=== PATIENT | male | born 1950 | race African-American/Black ===

== ENCOUNTER 2018-02-15 00:53 | Inpatient (IN) | payer MEDICARE, OTHER ==
[2018-02-15] VITALS (15 sets, daily range): BP systolic 126–188; BP diastolic 72–113; PULSE 69–98; RESP 16–20; TEMP 98.1–99.3; O2SAT 94–99
[~2018-02-15] VITALS: Ht 177.8 cm; Wt 93.0 kg
[2018-02-15] MEDS ORDERED: LABETALOL HCL 100 MG/20 ML VIAL IV PUSH STA (01:02)
[2018-02-15] MEDS ORDERED: SODIUM CHLORIDE 0.9% FLUSH 10 ML FLUSH IVF PRN (01:15)
[2018-02-15] MEDS ORDERED: MORPHINE SULFATE 4 MG/ML INJ IV PUSH ONE (01:15)
[2018-02-15 01:22] LABS: AUTOMATED NEUTROPHIL # 5.8 TH/MM3 (1.8-7.7); BASOPHIL % 0.2 % (0.0-2.0); HEMATOCRIT 39.3 % (39.0-51.0); HEMOGLOBIN 12.9 GM/DL (13.0-17.0); LYMPHOCYTE # 0.7 TH/MM3 (1.0-4.8); MEAN CELL VOLUME 90.6 FL (80.0-100.0); MEAN CORPUSCULAR HEMOGLOBIN 29.9 PG (27.0-34.0); MEAN PLATELET VOLUME 11.2 FL (7.0-11.0); MONO % 2.3 % (0.0-8.0); MONOCYTE # 0.2 TH/MM3 (0-0.9); NEUT % 86.5 % (16.0-70.0); PLATELET COUNT 188 TH/MM3 (150-450); RED BLOOD COUNT 4.33 MIL/MM3 (4.50-5.90); RED CELL DISTRIBUTION WIDTH 13.5 % (11.6-17.2); WHITE BLOOD COUNT 6.7 TH/MM3 (4.0-11.0)
--- NOTE | 2018-02-15 01:47 | RADRPT ---
EXAM DATE: 02/15/2018 1:31 AM EDT AGE/SEX: 67 years / Male INDICATIONS: Left upper chest pain. CLINICAL DATA: This is the patient's initial encounter. Patient reports that signs and symptoms have been present for 1 day and indicates a pain score of 7/10. MEDICAL/SURGICAL HISTORY: None. None. COMPARISON: No prior [place] exams available for comparison. FINDINGS: A single AP view of the chest demonstrates the lungs to be symmetrically aerated without evidence of mass, infiltrate or effusion. The cardiomediastinal contours are unremarkable. Osseous structures a re intact. CONCLUSION: No evidence of acute cardiopulmonary disease. Electronically signed by: Reagan Alba MD 02/15/2018 1:46 AM EDT
[2018-02-15 02:01] LABS: ALT (GPT) 28 U/L (12-78); AST (GOT) 19 U/L (15-37); BICARBONATE 23.8 MEQ/L (21.0-32.0); BLOOD UREA NITROGEN 14 MG/DL (7-18); CALCIUM 9.4 MG/DL (8.5-10.1); CHLORIDE 102 MEQ/L (98-107); CREATININE 1.21 MG/DL (0.60-1.30); GLOMERULAR FILTRATION RATE 73 ML/MIN (>89); GLUCOSE,RANDOM 325 MG/DL (74-106); MAGNESIUM 1.7 MG/DL (1.5-2.5); SODIUM (NA) 139 MEQ/L (136-145)
[2018-02-15 02:04] LABS: ALKALINE PHOSPHATASE 120 U/L (45-117); TOTAL BILIRUBIN ADULT 0.4 MG/DL (0.2-1.0); TOTAL PROTEIN 7.5 GM/DL (6.4-8.2); TROPONIN I 0.12 NG/ML (0.02-0.05)
[2018-02-15] MEDS ORDERED: LABETALOL HCL 100 MG/20 ML VIAL IV PUSH ONE (02:45)
[2018-02-15] MEDS ORDERED: HEPARIN SODIUM - IV 10,000 UNITS/10 ML VIAL IV ONE (02:45)
[2018-02-15] MEDS ORDERED: NITROGLYCERIN 2% OINT 1 GM PACKET TOPICAL ONE (02:45)
[2018-02-15] MEDS ORDERED: BISACODYL 10 MG SUPP RECTAL PRN (03:00)
[2018-02-15] MEDS ORDERED: MAGNESIUM HYDROXIDE SUSP 30 ML CUP PO PRN (03:00)
[2018-02-15] MEDS ORDERED: MORPHINE SULFATE 4 MG/ML INJ IV PUSH PRN (03:00)
[2018-02-15] MEDS ORDERED: NITROGLYCERIN 2% OINT 1 GM PACKET TOPICAL PRN (03:00)
[2018-02-15] MEDS ORDERED: LACTULOSE SYRUP 20 GM/30 ML CUP PO PRN (03:00)
[2018-02-15] MEDS ORDERED: ACETAMINOPHEN/HYDROcodone 325 MG/5 MG TAB PO PRN (03:00)
[2018-02-15] MEDS ORDERED: SENNOSIDES 8.6 MG TAB PO PRN (03:00)
[2018-02-15] MEDS ORDERED: SODIUM CHLORIDE 0.9% FLUSH 10 ML FLUSH IV FLUSH PRN (03:00)
[2018-02-15] MEDS ORDERED: METOCLOPRAMIDE HCL 10 MG/2 ML VIAL IV PUSH PRN (03:00)
[2018-02-15] MEDS: SODIUM CHLOR 0.9% 1000 ML INJ 1,000 ML IV SCH ×3 (03:04→22:46)
[2018-02-15] MEDS: HEPARIN-D5W 25,000 U/250 ML 250 ML IV PRN (03:05)
--- NOTE | 2018-02-15 03:25 | PD ---
HPI . Chest pain Chief Complaint: Chest Pain Time Seen by Provider: 01:02 Travel History International Travel<30 days: No Contact w/Intl Traveler<30days: No Traveled to known affect area: No History of Present Illness HPI [place] to his car when he felt substernal chest pain pressure-like to continue constantly called 911 took his own sublingual nitro they arrived to find him to be very hypertensive and they gave him 4 more sublingual to trying to reduce his pain and reduce his blood pressure also they gave him 4 baby aspirin then in route this pain subsided the patient arrives with no chest pain he has a history of insulin-dependent diabetic hypertensive he has a history of having stents placed he is supposed to have another stent placed in the [place] [facility] on February 27. He had a stent and a cath done not too long ago as well has a history of CAD hypertension diabetes now he is pain-free but the pain was pressure-like substernal continued up until sublingual nitros were given in the ambulance EKG is bigeminy at a rate of 94 bpm [facility] Past Medical History Cardiac Catheterization: Yes High Cholesterol: Yes Chest Pain: Yes Diabetes: Yes Patient Takes Glucophage: No Hypertension: Yes Past Surgical History Coronary Stent: Yes Social History Alcohol Use: No Tobacco Use: No Substance Use: No Allergies-Medications (Allergen,Severity, Reaction): Coded Allergies: No Known Allergies (Unverified , 02/15/18) Review of Systems Except as stated in HPI: all other systems reviewed are Neg Physical Exam Narrative GENERAL: Awake alert mildly diaphoretic forehead but otherwise looks healthy SKIN: Warm and dry. HEAD: Atraumatic. Normocephalic. EYES: Pupils equal and round. No scleral icterus. No injection or drainage. ENT: No nasal bleeding or discharge. Mucous membranes pink and moist. NECK: Trachea midline. No JVD. CARDIOVASCULAR: Patient on the monitor has bigeminy every other beat is a PVC at a rate of 94 EKG bigeminy heart rate 94 RESPIRATORY: No accessory muscle use. Clear to auscultation. Breath sounds equal bilaterally. GASTROINTESTINAL: Abdomen soft, non-tender, nondistended. Hepatic and splenic margins not palpable. MUSCULOSKELETAL: Extremities without clubbing, cyanosis, or edema. No obvious deformities. NEUROLOGICAL: Awake and alert. No obvious cranial nerve deficits. Motor grossly within normal limits. Five out of 5 muscle strength in the arms and legs. Normal speech. PSYCHIATRIC: Appropriate mood and affect; insight and judgment normal. Data Data Last Documented VS Vital Signs Date Time Temp Pulse Resp B/P (MAP) Pulse Ox O2 Delivery O2 Flow Rate FiO2 02/15/18 01:27 173/113 (133) 02/15/18 01:07 98 Room Air 02/15/18 00:56 98.2 98 18 Orders Orders Labetalol Inj (Trandate Inj) (02/15/18 01:02) Electrocardiogram (02/15/18 01:05) Ckmb (Isoenzyme) Profile (02/15/18 01:05) Complete Blood Count With Diff (02/15/18 01:05) Comprehensive Metabolic Panel (02/15/18 01:05) Magnesium (Mg) (02/15/18 01:05) Prothrombin Time / Inr (Pt) (02/15/18 01:05) Act Partial Throm Time (Ptt) (02/15/18 01:05) Troponin I (02/15/18 01:05) Chest, Single Ap (02/15/18 01:05) Ecg Monitoring (02/15/18 01:05) Bilateral Bp Monitoring (02/15/18 01:05) Iv Access Insert/Monitor (02/15/18 01:05) Oximetry (02/15/18 01:05) Oxygen Administration (02/15/18 01:05) Morphine Inj (Morphine Inj) (02/15/18 01:15) Sodium Chloride 0.9% Flush (Ns Flush) (02/15/18 01:15) CKMB (02/15/18 01:09) CKMB% (02/15/18 01:09) Heparin Inj (Heparin Inj) (02/15/18 02:45) Heparin-D5w 25,000 U/250 Ml (Heparin-D5w (02/15/18 02:45) Act Partial Throm Time (Ptt) (02/15/18 02:39) Prothrombin Time / Inr (Pt) (02/15/18 02:39) Cbc No Diff, Includes Plts (02/15/18 02:39) Cbc No Diff, Includes Plts (02/18/18 06:00) Act Partial Throm Time (Ptt) (02/15/18 09:39) Occult Blood (Hemoccult) Stool (02/15/18 02:39) Nitroglycerin 2% Oint (Nitroglycerin 2% (02/15/18 02:45) Labetalol Inj (Trandate Inj) (02/15/18 02:45) Admit To Inpatient (02/15/18 ) Vital Signs (Adult) Q4H (02/15/18 02:46) Activity Oob With Assistance (02/15/18 02:46) Slab Lifting Engineer / Telemetry .CONTINUOUS (02/15/18 02:46) Intake + Output JASMIN.QSHIFT (02/15/18 02:46) Diet Heart Healthy (02/15/18 Breakfast) Sodium Chlor 0.9% 1000 Ml Inj (Ns 1000 M (02/15/18 02:46) Sodium Chloride 0.9% Flush (Ns Flush) (02/15/18 03:00) Sodium Chloride 0.9% Flush (Ns Flush) (02/15/18 09:00) Metoclopramide Inj (Reglan Inj) (02/15/18 03:00) Comprehensive Metabolic Panel (02/16/18 06:00) Complete Blood Count With Diff (02/16/18 06:00) Troponin I (02/15/18 09:00) Troponin I (02/15/18 15:00) Case Management Consult (02/15/18 02:46) Acetaminophen (Tylenol) (02/15/18 03:00) Acetamin-Hydrocod 325-5 Mg ([place] 5-325 (02/15/18 03:00) Docusate Sodium-Senna (Nancy-Colace) (02/15/18 09:00) Magnesium Hydroxide Liq (Milk Of Magnesi (02/15/18 03:00) Sennosides (Senokot) (02/15/18 03:00) Bisacodyl Supp (Dulcolax Supp) (02/15/18 03:00) Lactulose Liq (Lactulose Liq) (02/15/18 03:00) Inpatient Certification (02/15/18 ) Consult Cardiology (02/15/18 ) Aspirin Ec (Ecotrin Ec) (02/15/18 09:00) Atorvastatin (Lipitor) (02/15/18 09:00) Lipid Profile (02/15/18 09:00) Hemoglobin (Hgb) A1c (02/15/18 09:00) Nitroglycerin 2% Oint (Nitroglycerin 2% (02/15/18 03:00) Metoprolol Tartrate (Lopressor) (02/15/18 09:00) Morphine Inj (Morphine Inj) (02/15/18 03:00) Admit Order (Ed Use Only) (02/15/18 03:12) Labs Laboratory Tests Test 02/15/18 01:09 White Blood Count 6.7 TH/MM3 Red Blood Count 4.33 MIL/MM3 Hemoglobin 12.9 GM/DL Hematocrit 39.3 % Mean Corpuscular Volume 90.6 FL Mean Corpuscular Hemoglobin 29.9 PG Mean Corpuscular Hemoglobin Concent 33.0 % Red Cell Distribution Width 13.5 % Platelet Count 188 TH/MM3 Mean Platelet Volume 11.2 FL Neutrophils (%) (Auto) 86.5 % Lymphocytes (%) (Auto) 11.0 % Monocytes (%) (Auto) 2.3 % Eosinophils (%) (Auto) 0.0 % Basophils (%) (Auto) 0.2 % Neutrophils # (Auto) 5.8 TH/MM3 Lymphocytes # (Auto) 0.7 TH/MM3 Monocytes # (Auto) 0.2 TH/MM3 Eosinophils # (Auto) 0.0 TH/MM3 Basophils # (Auto) 0.0 TH/MM3 CBC Comment DIFF FINAL Differential Comment Prothrombin Time 10.0 SEC Prothromb Time International Ratio 1.0 RATIO Activated Partial Thromboplast Time 26.2 SEC Blood Urea Nitrogen 14 MG/DL Creatinine 1.21 MG/DL Random Glucose 325 MG/DL Total Protein 7.5 GM/DL Albumin 4.0 GM/DL Calcium Level 9.4 MG/DL Magnesium Level 1.7 MG/DL Alkaline Phosphatase 120 U/L Aspartate Amino Transf (AST/SGOT) 19 U/L Alanine Aminotransferase (ALT/SGPT) 28 U/L Total Bilirubin 0.4 MG/DL Sodium Level 139 MEQ/L Potassium Level 4.0 MEQ/L Chloride Level 102 MEQ/L Carbon Dioxide Level 23.8 MEQ/L Anion Gap 13 MEQ/L Estimat Glomerular Filtration Rate 73 ML/MIN Total Creatine Kinase 479 U/L Creatine Kinase MB 11.8 NG/ML Creatine Kinase MB % 2.5 % Troponin I 0.12 NG/ML MDM Medical Decision Making Medical Screen Exam Complete: Yes Emergency Medical Condition: Yes Medical Record Reviewed: Yes Interpretation(s) EKG is bigeminy at a rate of 94 bpm every normal QRS narrow is followed by a large PVC on a repeating pattern 1-1 Differential Diagnosis Patient has chest pain substernal possibly due to pneumonia possibly due to ischemic cardiac disease possibly due to arrhythmia Narrative Course trop =0 0.12 EKG is bigeminy at a rate of 94 bpm with a 1-1 bigeminy patient is given aspirin nitro admitted to [facility] Critical Care Narrative 30 minutes of cardiac CC time Diagnosis Primary Impression: Non-STEMI (non-ST elevated myocardial infarction) Additional Impression: Bigeminy Admitting Information Admitting Physician Requests: Sherwin Herrera MD February 15, 2018 03:25
[2018-02-15] MEDS ORDERED: GLUCAGON 1 MG/ML VIAL OTHER PRN (04:15)
[2018-02-15] MEDS ORDERED: DEXTROSE 50% IN WATER 50 ML VIAL(D50) IV PUSH PRN (04:15)
--- NOTE | 2018-02-15 04:26 | HHI.HP ---
[facility]ician Unknown Admission Diagnosis NON STEMI Diagnoses: (1) NSTEMI (non-ST elevated myocardial infarction) Diagnosis: Principal (2) HTN (hypertension) Diagnosis: Principal (3) DM (diabetes mellitus) Diagnosis: Principal Travel History International Travel<30 Days: No Contact w/Intl Traveler <30 Da: No Traveled to Known Affected Are: No History of Present Illness This is a 67-year-old male with a PMH of HTN, Hyperlipidemia and DM was brought to the ER by EMS secondary to complaints of chest pain. Pt states he's had intermittent chest pain for several weeks. Follows w/ Treasury Assistant in [place] and had recent Cath w/ plans for stent placement on February 27. [place] and had chest pain when he got out of the car. Pain became constant, severe, 10/10, substernal, non-radiating. Took 6 NTG total with no improvement. Given ASA by EMS. Denies SOB. On arrival, BP 188/86, HR 98, O2 sat 98% on RA, Afebrile. CBC unremarkable. Chemistry unremarkable except for BS 325. Troponin 0.12. INR 1.0. CXR with no acute findings. S/p NTG in addition to Morphine, currently pain improved. Review of Systems Except as stated in HPI: all other systems reviewed are Neg ROS: 14 point review of systems otherwise negative. Past Family Social History Past Medical History PMH: HTN, Hyperlipidemia and DM Past Surgical History PAST SURGICAL HISTORY: Cardiac Stent Allergies: Coded Allergies: No Known Allergies (Unverified , 02/15/18) Family History PAST FAMILY HISTORY: Reviewed. No h/o DM or CAD Social History PAST SOCIAL HISTORY: Negative for alcohol, tobacco or drugs. Physical Exam Vital Signs Vital Signs Date Time Temp Pulse Resp B/P (MAP) Pulse Ox O2 Delivery O2 Flow Rate FiO2 02/15/18 03:36 02/15/18 03:29 89 18 159/77 (104) 97 Room Air 02/15/18 01:27 173/113 (133) 02/15/18 01:07 98 Room Air 02/15/18 01:07 98 Room Air 02/15/18 01:07 188/86 (120) 02/15/18 00:56 98.2 98 18 188/86 (120) 98 Physical Exam PE: GENERAL: Very pleasant middle-aged black male in no acute distress. HEENT: PERRLA, EOMI. No scleral icterus or conjunctival pallor. No lid lag or facial droop. CARDIOVASCULAR: Regular rate and rhythm. No obvious murmurs to auscultation. No chest tenderness to palpation. RESPIRATORY: No obvious rhonchi or wheezing. Clear to auscultation. Breath sounds equal bilaterally. GASTROINTESTINAL: Abdomen soft, non-tender, nondistended. BS normal. MUSCULOSKELETAL: Extremities without clubbing, cyanosis, or edema. No obvious deformities. NEUROLOGICAL: Awake, alert and oriented x4. No focal neurologic deficits. Moving both upper and lower extremities spontaneously. Laboratory Laboratory Tests Test 02/15/18 01:09 White Blood Count 6.7 Red Blood Count 4.33 Hemoglobin 12.9 Hematocrit 39.3 Mean Corpuscular Volume 90.6 Mean Corpuscular Hemoglobin 29.9 Mean Corpuscular Hemoglobin Concent 33.0 Red Cell Distribution Width 13.5 Platelet Count 188 Mean Platelet Volume 11.2 Neutrophils (%) (Auto) 86.5 Lymphocytes (%) (Auto) 11.0 Monocytes (%) (Auto) 2.3 Eosinophils (%) (Auto) 0.0 Basophils (%) (Auto) 0.2 Neutrophils # (Auto) 5.8 Lymphocytes # (Auto) 0.7 Monocytes # (Auto) 0.2 Eosinophils # (Auto) 0.0 Basophils # (Auto) 0.0 CBC Comment DIFF FINAL Differential Comment Prothrombin Time 10.0 Prothromb Time International Ratio 1.0 Activated Partial Thromboplast Time 26.2 Blood Urea Nitrogen 14 Creatinine 1.21 Random Glucose 325 Total Protein 7.5 Albumin 4.0 Calcium Level 9.4 Magnesium Level 1.7 Alkaline Phosphatase 120 Aspartate Amino Transf (AST/SGOT) 19 Alanine Aminotransferase (ALT/SGPT) 28 Total Bilirubin 0.4 Sodium Level 139 Potassium Level 4.0 Chloride Level 102 Carbon Dioxide Level 23.8 Anion Gap 13 Estimat Glomerular Filtration Rate 73 Total Creatine Kinase 479 Creatine Kinase MB 11.8 Creatine Kinase MB % 2.5 Troponin I 0.12 Result Diagram: 5/2610802/15/18108 Caprini VTE Risk Assessment Caprini VTE Risk Assessment: No/Low Risk (score <= 1) Caprini Risk Assessment Model Point Value = 1 Point Value = 2 Point Value = 3 Point Value = 5 Age 41-60 Minor surgery BMI > 25 kg/m2 Swollen legs Varicose veins or History of unexplained or recurrent spontaneous Oral contraceptives or hormone replacement Sepsis (< 1 month) Serious lung disease, including pneumonia (< 1 month) Abnormal pulmonary function Acute myocardial infarction Congestive heart failure (< 1 month) History of inflammatory bowel disease Medical patient at bed rest Age 61-74 Arthroscopic surgery Major open surgery (> 45 min) Laparoscopic surgery (> 45 min) Malignancy Confined to bed (> 72 hours) Immobilizing plaster cast Central venous access Age >= 75 History of VTE Family history of VTE Factor V Leiden Prothrombin [id number] Lupus anticoagulant Anticardiolipin antibodies Elevated serum homocysteine Heparin-induced thrombocytopenia Other congenital or acquired thrombophilia Stroke (< 1 month) Elective arthroplasty Hip, pelvis, or leg fracture Acute spinal cord injury (< 1 month) Prophylaxis Regimen Total Risk Factor Score Risk Level Prophylaxis Regimen 0-1 Low Early ambulation 2 Moderate Order ONE of the following: *Sequential Compression Device (SCD) *Heparin 5000 units SQ BID 3-4 Higher Order ONE of the following medications: *Heparin 5000 units SQ TID *Enoxaparin/Lovenox 40 mg SQ daily (WT < 150 kg, CrCl > 30 mL/min) *Enoxaparin/Lovenox 30 mg SQ daily (WT < 150 kg, CrCl > 10-29 mL/min) *Enoxaparin/Lovenox 30 mg SQ BID (WT < 150 kg, CrCl > 30 mL/min) AND/OR *Sequential Compression Device (SCD) 5 or more Highest Order ONE of the following medications: *Heparin 5000 units SQ TID (Preferred with Epidurals) *Enoxaparin/Lovenox 40 mg SQ daily (WT < 150 kg, CrCl > 30 mL/min) *Enoxaparin/Lovenox 30 mg SQ daily (WT < 150 kg, CrCl > 10-29 mL/min) *Enoxaparin/Lovenox 30 mg SQ BID (WT < 150 kg, CrCl > 30 mL/min) AND *Sequential Compression Device (SCD) Assessment and Plan Problem List: (1) NSTEMI (non-ST elevated myocardial infarction) ICD Code: I21.4 - Non-ST elevation (NSTEMI) myocardial infarction (2) HTN (hypertension) ICD Code: I10 - Essential (primary) hypertension (3) DM (diabetes mellitus) ICD Code: E11.9 - Type 2 diabetes mellitus without complications Assessment and Plan A/P: 1. NSTEMI: c/o chest pain, h/o Cath w/ stent placement, Trop 0.12, s/p NTG x6 prior to arrival and Morphine in ER w/ some improvement. Heparin gtt, check serial cardiac enzymes, NTG/Morphine as needed. ASA, Statin, Metoprolol. Check Lipid Profile, Hgb A1c. Cardiology Consult for further evaluation/ intervention. 2. HTN: Uncontrolled. BP 180's on arrival, likely compounded by chest pain, s /p Labetalol w/ improvement, start Metoprolol, monitor BP. 3. DM: Sliding scale w/ Accu-Cheks. Check Hgb A1c. 4. DVT Prophylaxis: Heparin gtt 5. Social work for d/c planning as needed. 6. Case discussed w/ ER physician at length, labs/records/imaging reviewed by me. Physician Certification 2 Midnight Certification Type: Admission for Inpatient Services Order for Inpatient Services The services are ordered in accordance with Medicare regulations or non- Medicare payer requirements, as applicable. In the case of services not specified as inpatient-only, they are appropriately provided as inpatient services in accordance with the 2-midnight benchmark. Estimated LOS (days): 2 days is the estimated time the patient will need to remain in the hospital, assuming treatment plan goals are met and no additional complications. Post-Hospital Plan: Not yet determined Radha Good MD February 15, 2018 04:26
[2018-02-15] MEDS: INSULIN ASPART SUPPLEMENTAL SCALE SQ SCH ×4 (08:00→21:20)
--- NOTE | 2018-02-15 08:02 | PD.CONS ---
HPI Service cardiology Consult Requested By Reason for Consult NSTEMI Primary Care Physician Unknown History of Present Illness This is a pleasant 67 yo AAM with CAD and multiple prior stenting followed by finance executive in [place], with HTN, HLD and diabetes who presents with exertional chest pain. He reports having had a cardiac catheterization in November of this year initially via groin access but apparently procedure could not be completed due to intractable back pain and the procedure was rescheduled for the first week of February to be done by radial approach. Last week he held Plavix x 1 week for low back injection; his low back felt so much better after injection that he's been more physically active. He drove down to the [employer] and upon walking from car to front door he developed anterior chest pain reminiscent of prior RI. He then came to [facility] ED for evaluation. Troponin level x 1 is elevated 0.12; CK elevated(479). EKG shows ventricular bigeminy. Denies current chest pain, sob or palpitations. Review of Systems Consitutional: DENIES: Fatigue, Fever, Chills, Weight gain, Weight loss Respiratory: DENIES: Cough, Snoring, Shortness of breath, Wheezing, Sputum production Cardiovascular: DENIES: Palpitations, Syncope, Tachycardia Gastrointestinal: DENIES: Nausea, Vomiting, Change in bowel habits, Reflux, Bloody stools, Melena Past Family Social History Allergies: Coded Allergies: No Known Allergies (Unverified , 02/15/18) Past Medical History HTN, Hyperlipidemia and DM Past Surgical History Cardiac Stent Active Ordered Medications Current Medications Medications (Trade) Dose Ordered Sig/Chuck Route Start Time Stop Time Status Last Admin (NS Flush) 2 ml UNSCH PRN IVF 02/15/18 01:15 Heparin Sodium/ Dextrose 250 ml @ 10 mls/hr TITRATE PRN IV 02/15/18 02:45 02/15/18 03:05 Sodium Chloride 1,000 ml @ 100 mls/hr Q10H IV 02/15/18 02:46 02/15/18 03:04 (NS Flush) 2 ml UNSCH PRN IV FLUSH 02/15/18 03:00 (NS Flush) 2 ml BID IV FLUSH 02/15/18 09:00 (Reglan Inj) 5 mg Q6H PRN IV PUSH 02/15/18 03:00 (Tylenol) 650 mg Q6H PRN PO 02/15/18 03:00 ([place] 5-325 Mg) 1 tab Q4H PRN PO 02/15/18 03:00 (Morphine Inj) 2 mg Q3H PRN IV PUSH 02/15/18 03:00 (Nancy-Colace) 1 tab BID PO 02/15/18 09:00 (Milk Of Magnesia Liq) 30 ml Q12H PRN PO 02/15/18 03:00 (Senokot) 17.2 mg Q12H PRN PO 02/15/18 03:00 (Dulcolax Supp) 10 mg DAILY PRN RECTAL 02/15/18 03:00 (Lactulose Liq) 30 ml DAILY PRN PO 02/15/18 03:00 (Ecotrin Ec) 81 mg DAILY PO 02/15/18 09:00 (Lipitor) 40 mg DAILY PO 02/15/18 09:00 (Nitroglycerin 2% Oint) 0.5 inch Q6HR PRN TOPICAL 02/15/18 03:00 (Lopressor) 25 mg Q12HR PO 02/15/18 09:00 (D50w (Vial) Inj) 50 ml UNSCH PRN IV PUSH 02/15/18 04:15 (Glucagon Inj) 1 mg UNSCH PRN OTHER 02/15/18 04:15 (NovoLOG SUPPLEMENTAL SCALE) 1 ACHS SLIDING SCALE SQ 02/15/18 08:00 (Pneumovax-23 Inj) 25 mcg ONCE ONCE IM 02/16/18 10:00 02/16/18 10:01 (Flu (Quadrivalent) Vaccine Inj) 0.5 ml ONCE ONCE IM 02/16/18 10:00 02/16/18 10:01 Family History . No h/o DM or CAD Social History Negative for alcohol, tobacco or drugs. Physical Exam Vital Signs Vital Signs Date Time Temp Pulse Resp B/P (MAP) Pulse Ox O2 Delivery O2 Flow Rate FiO2 02/15/18 03:36 02/15/18 03:29 89 18 159/77 (104) 97 Room Air 02/15/18 01:27 173/113 (133) 02/15/18 01:07 98 Room Air 02/15/18 01:07 98 Room Air 02/15/18 01:07 188/86 (120) 02/15/18 00:56 98.2 98 18 188/86 (120 98 Physical Exam GENERAL: SKIN: Warm and dry. HEAD: Atraumatic. Normocephalic. EYES: Pupils equal and round. No scleral icterus. ENT: No nasal bleeding or discharge. . NECK: Trachea midline. No JVD. CARDIOVASCULAR: Regular rate and regularly irregular rhythm. RESPIRATORY: No accessory muscle use. Clear to auscultation. Breath sounds equal bilaterally. GASTROINTESTINAL: Abdomen soft, non-tender, nondistended. Hepatic and splenic margins not palpable. MUSCULOSKELETAL: Extremities without clubbing, cyanosis, or edema. No obvious deformities. NEUROLOGICAL: Awake and alert. No obvious cranial nerve deficits.. Normal speech. PSYCHIATRIC: Appropriate mood and affect; insight and judgment normal. Laboratory Laboratory Tests Test 02/15/18 01:09 White Blood Count 6.7 Red Blood Count 4.33 Hemoglobin 12.9 Hematocrit 39.3 Mean Corpuscular Volume 90.6 Mean Corpuscular Hemoglobin 29.9 Mean Corpuscular Hemoglobin Concent 33.0 Red Cell Distribution Width 13.5 Platelet Count 188 Mean Platelet Volume 11.2 Neutrophils (%) (Auto) 86.5 Lymphocytes (%) (Auto) 11.0 Monocytes (%) (Auto) 2.3 Eosinophils (%) (Auto) 0.0 Basophils (%) (Auto) 0.2 Neutrophils # (Auto) 5.8 Lymphocytes # (Auto) 0.7 Monocytes # (Auto) 0.2 Eosinophils # (Auto) 0.0 Basophils # (Auto) 0.0 CBC Comment DIFF FINAL Differential Comment Prothrombin Time 10.0 Prothromb Time International Ratio 1.0 Activated Partial Thromboplast Time 26.2 Blood Urea Nitrogen 14 Creatinine 1.21 Random Glucose 325 Total Protein 7.5 Albumin 4.0 Calcium Level 9.4 Magnesium Level 1.7 Alkaline Phosphatase 120 Aspartate Amino Transf (AST/SGOT) 19 Alanine Aminotransferase (ALT/SGPT) 28 Total Bilirubin 0.4 Sodium Level 139 Potassium Level 4.0 Chloride Level 102 Carbon Dioxide Level 23.8 Anion Gap 13 Estimat Glomerular Filtration Rate 73 Total Creatine Kinase 479 Creatine Kinase MB 11.8 Creatine Kinase MB % 2.5 Troponin I 0.12 Result Diagram: 02/15/1810802/15/18108 Imaging Last 48 hours Impressions Chest X-Ray 02/15/18104 Signed Impressions: CONCLUSION: No evidence of acute cardiopulmonary disease. Assessment and Plan Problem List: (1) NSTEMI (non-ST elevated myocardial infarction) ICD Codes: I21.4 - Non-ST elevation (NSTEMI) myocardial infarction Assessment and Plan 67 yo AAM with CAD and multiple prior stenting followed by finance executive in [place], with HTN, HLD and diabetes who presents with exertional chest pain. He reports having had a cardiac catheterization in November of this year initially via groin access but apparently procedure could not be completed due to intractable back pain and the procedure was rescheduled for the first week of February to be done by radial approach. Last week he held Plavix x 1 week for low back injection; his low back felt so much better after injection that he's been more physically active. He drove down to the [employer] and upon walking from car to front door he developed anterior chest pain reminiscent of prior RI. He then came to [facility] for evaluation. Troponin level x 1 is elevated 0.12; CK elevated(479). Denies current chest pain, sob or palpitations. NSTEMI- currently resting comfortably. ventricular bigeminy check echo monitor troponin trend will require ischemic workup; [facility] vs. Jenifer Khan February 15, 2018 08:02
[2018-02-15] MEDS: ASPIRIN EC 81 MG TABEC PO SCH (08:48)
[2018-02-15] MEDS: METOPROLOL TARTRATE 25 MG TAB PO SCH ×2 (08:48→21:17)
[2018-02-15] MEDS: ATORVASTATIN 40 MG TAB PO SCH (08:49)
[2018-02-15] MEDS: SODIUM CHLORIDE 0.9% FLUSH 10 ML FLUSH IV FLUSH SCH ×2 (08:49→21:00)
[2018-02-15] MEDS: DOCUSATE SODIUM 50 MG/SENNA 8.6 MG TAB PO SCH ×2 (08:49→21:00)
[2018-02-15 10:54] LABS: CHOLESTEROL 67 MG/DL (120-200); TRIGLYCERIDES 30 MG/DL (42-150)
[2018-02-15 11:00] LABS: CHOLESTEROL/ HDL RATIO 1.64 RATIO; HDL CHOLESTEROL 40.7 MG/DL (40.0-60.0); LDL CHOLESTEROL 20 MG/DL (0-99)
[2018-02-15 11:12] LABS: TROPONIN I 1.59 NG/ML (0.02-0.05)
--- NOTE | 2018-02-15 11:25 | HHI.PR ---
Subjective Remarks resting comfortably. no chest pain or sob. d/w the RN and no acute issues over night. Objective Vitals Vital Signs Date Time Temp Pulse Resp B/P (MAP) Pulse Ox O2 Delivery O2 Flow Rate FiO2 02/15/18 04:00 99.3 85 20 136/85 (102) 94 02/15/18 04:00 85 02/15/18 03:36 02/15/18 03:29 89 18 159/77 (104) 97 Room Air 02/15/18 01:27 173/113 (133) 02/15/18 01:07 98 Room Air 02/15/18 01:07 98 Room Air 02/15/18 01:07 188/86 (120) 02/15/18 00:56 98.2 98 18 188/86 (120) 98 I/O 02/14/18 02/14/18 02/14/18 02/15/18 02/15/18 02/15/18 07:00 15:00 23:00 07:00 15:00 23:00 Intake Total 325 ml Output Total 300 ml Balance 25 ml Intake IV Total 325 ml Output Urine Total 300 ml Result Diagram: 02/15/1810802/15/18108 Imaging Last Impressions Chest X-Ray 02/15/18104 Signed Impressions: CONCLUSION: No evidence of acute cardiopulmonary disease. Objective Remarks GENERAL: This is a well-nourished, well-developed patient, in no apparent distress. CARDIOVASCULAR: Regular rate and regular rhythm without murmurs, gallops, or rubs. RESPIRATORY: Clear to auscultation. Breath sounds equal bilaterally. No wheezes , rales, or rhonchi. GASTROINTESTINAL: Abdomen soft, non-tender, nondistended. Normal, active bowel sounds MUSCULOSKELETAL: Extremities without clubbing, cyanosis, or edema. NEURO: Alert & Oriented x4 to person, place, time, situation. Moves all ext x4 Medications and IVs Inpatient Medications Acetaminophen (Tylenol) 650 mg Q6H PRN PO FEVER/PAIN SCALE 1 TO 2; Start at 03:00 Acetaminophen/ Hydrocodone Bitart ([place] 5-325 Mg) 1 tab Q4H PRN PO PAIN SCALE 3 TO 5; Start 02/15/18 at 03:00 Aspirin (Ecotrin Ec) 81 mg DAILY PO Last administered on 02/15/18at 08:48; Start 02/15/18 at 09:00 Atorvastatin Calcium (Lipitor) 40 mg DAILY PO Last administered on 02/15/18at 08 :49; Start 02/15/18 at 09:00 Bisacodyl (Dulcolax Supp) 10 mg DAILY PRN RECTAL SEVERE CONSITIPATION/ IF NPO ; Start 02/15/18 at 03:00 Dextrose (D50w (Vial) Inj) 50 ml UNSCH PRN IV PUSH HYPOGLYCEMIA-SEE COMMENTS; Start 02/15/18 at 04:15 Glucagon (Glucagon Inj) 1 mg UNSCH PRN OTHER HYPOGLYCEMIA-SEE COMMENTS; Start 02/15/18 at 04:15 Heparin Sodium (Porcine) (Heparin Inj) 4,000 units ONCE ONCE IV Last administered on 02/15/18at 03:03; Start 02/15/18 at 02:45; Stop 02/15/18 at 02:46 ; Status DC Heparin Sodium/ Dextrose 250 ml @ 10 mls/hr TITRATE PRN IV Coagulation Management Last administered on 02/15/18at 03:05; Start 02/15/18 at 02:45 Influenza Virus Vaccine (Flu (Quadrivalent) Vaccine Inj) 0.5 ml ONCE ONCE IM ; Start 02/16/18 at 10:00; Stop 02/16/18 at 10:01 Insulin Aspart (NovoLOG SUPPLEMENTAL SCALE) 1 ACHS SLIDING SCALE SQ ; Start at 08:00 Labetalol HCl (Trandate Inj) 20 mg ONCE ONCE IV PUSH ; Start 02/15/18 at 02:45 ; Stop 02/15/18 at 02:46; Status DC Lactulose (Lactulose Liq) 30 ml DAILY PRN PO SEVERE CONSITIPATION/ IF PO; Start 02/15/18 at 03:00 Magnesium Hydroxide (Milk Of Magnesia Liq) 30 ml Q12H PRN PO Mild constipation ; Start 02/15/18 at 03:00 Metoclopramide HCl (Reglan Inj) 5 mg Q6H PRN IV PUSH NAUSEA OR VOMITING; Start 02/15/18 at 03:00 Metoprolol Tartrate (Lopressor) 25 mg Q12HR PO Last administered on 02/15/18at 08:48; Start 02/15/18 at 09:00 Morphine Sulfate (Morphine Inj) 2 mg Q3H PRN IV PUSH Pain 6-10; Start 02/15/18 at 03:00 Nitroglycerin (Nitroglycerin 2% Oint) 0.5 inch Q6HR PRN TOPICAL CHEST PAIN; Start 02/15/18 at 03:00 Pneumococcal Polyvalent Vaccine (Pneumovax-23 Inj) 25 mcg ONCE ONCE IM ; Start 02/16/18 at 10:00; Stop 02/16/18 at 10:01 Senna/Docusate Sodium (Nancy-Colace) 1 tab BID PO Last administered on at 08:49; Start 02/15/18 at 09:00 Sennosides (Senokot) 17.2 mg Q12H PRN PO Moderate constipation; Start 02/15/18 at 03:00 Sodium Chloride (NS Flush) 2 ml BID IV FLUSH Last administered on 02/15/18at 08: 49; Start 02/15/18 at 09:00 A/P Problem List: (1) NSTEMI (non-ST elevated myocardial infarction) ICD Code: I21.4 - Non-ST elevation (NSTEMI) myocardial infarction (2) HTN (hypertension) ICD Code: I10 - Essential (primary) hypertension (3) DM (diabetes mellitus) ICD Code: E11.9 - Type 2 diabetes mellitus without complications Assessment and Plan A/P 1. NSTEMI: continue Heparin drip, aspirin, BB and statin- cardiology consulted;plan for possible cardiac cath. 2. HTN: overall improved- continue BB- will monitor and adjust the regimen as needed. 3. DM: Sliding scale w/ Accu-Cheks. Hgb A1c pending. 4. DVT Prophylaxis: Heparin gtt Discharge Planning pending cardiac w/u. Thomas Baker MD February 15, 2018 11:25
--- NOTE | 2018-02-15 13:52 | EKG ---
Date Performed: 02/15/2018 Time Performed: 00:54:30 PTAGE: 67 years EKG: Sinus rhythm WITH FREQUENT VENTRICULAR PREMATURE COMPLEXES IN A BIGEMINAL PATTERN LEFT ATRIAL ENLARGEMENT POSSIBL E LEFT VENTRICULAR HYPERTROPHY INFERIOR MYOCARDIAL INFARCTION ABNORMAL ECG NO PREVIOUS TRACING DOCTOR: Dougie Allison Interpretating Date/Time 02/15/2018 13:50:05
[2018-02-16] VITALS (24 sets, daily range): BP systolic 110–150; BP diastolic 44–85; PULSE 40–96; RESP 16; TEMP 97.6–98.3; O2SAT 99–100
[2018-02-16] MEDS: HEPARIN-D5W 25,000 U/250 ML 250 ML IV PRN (04:57)
[2018-02-16 05:46] LABS: AUTOMATED NEUTROPHIL # 5.9 TH/MM3 (1.8-7.7); BASOPHIL # 0.1 TH/MM3 (0-0.2); BASOPHIL % 0.5 % (0.0-2.0); EOSINOPHIL # 0.1 TH/MM3 (0-0.4); EOSINOPHIL % 1.1 % (0.0-4.0); HEMATOCRIT 37.6 % (39.0-51.0); HEMOGLOBIN 12.7 GM/DL (13.0-17.0); LYMPH % 41.7 % (9.0-44.0); LYMPHOCYTE # 4.8 TH/MM3 (1.0-4.8); MEAN CORPUSCULAR HGB CONC 33.7 % (32.0-36.0); MEAN PLATELET VOLUME 11.3 FL (7.0-11.0); MONO % 5.4 % (0.0-8.0); MONOCYTE # 0.6 TH/MM3 (0-0.9); NEUT % 51.3 % (16.0-70.0); PLATELET COUNT 170 TH/MM3 (150-450); RED BLOOD COUNT 4.22 MIL/MM3 (4.50-5.90); RED CELL DISTRIBUTION WIDTH 13.6 % (11.6-17.2); WHITE BLOOD COUNT 11.5 TH/MM3 (4.0-11.0)
[2018-02-16 06:25] LABS: ALBUMIN 3.4 GM/DL (3.4-5.0); ALKALINE PHOSPHATASE 74 U/L (45-117); ALT (GPT) 28 U/L (12-78); AST (GOT) 27 U/L (15-37); BICARBONATE 27.4 MEQ/L (21.0-32.0); BLOOD UREA NITROGEN 12 MG/DL (7-18); CALCIUM 8.5 MG/DL (8.5-10.1); CHLORIDE 106 MEQ/L (98-107); CREATININE 1.02 MG/DL (0.60-1.30); GLOMERULAR FILTRATION RATE 89 ML/MIN (>89); GLUCOSE,RANDOM 197 MG/DL (74-106); SODIUM (NA) 142 MEQ/L (136-145); TOTAL BILIRUBIN ADULT 0.6 MG/DL (0.2-1.0); TOTAL PROTEIN 6.4 GM/DL (6.4-8.2)
[2018-02-16 06:33] LABS: TROPONIN I 4.42 NG/ML (0.02-0.05)
--- NOTE | 2018-02-16 07:46 | PD.CARD.PN ---
Subjective Subjective Remarks resting comfortably overnight. no chest pain, sob or palpitations. (Jenifer Ray) Objective Medications Current Medications Medications (Trade) Dose Ordered Sig/Chuck Route Start Time Stop Time Status Last Admin (NS Flush) 2 ml UNSCH PRN IVF 02/15/18 01:15 Heparin Sodium/ Dextrose 250 ml @ 10 mls/hr TITRATE PRN IV 02/15/18 02:45 02/16/18 04:57 Sodium Chloride 1,000 ml @ 100 mls/hr Q10H IV 02/15/18 02:46 02/15/18 12:37 (NS Flush) 2 ml UNSCH PRN IV FLUSH 02/15/18 03:00 (NS Flush) 2 ml BID IV FLUSH 02/15/18 09:00 02/15/18 08:49 (Reglan Inj) 5 mg Q6H PRN IV PUSH 02/15/18 03:00 (Tylenol) 650 mg Q6H PRN PO 02/15/18 03:00 ([place] 5-325 Mg) 1 tab Q4H PRN PO 02/15/18 03:00 (Morphine Inj) 2 mg Q3H PRN IV PUSH 02/15/18 03:00 (Nancy-Colace) 1 tab BID PO 02/15/18 09:00 02/15/18 08:49 (Milk Of Magnesia Liq) 30 ml Q12H PRN PO 02/15/18 03:00 (Senokot) 17.2 mg Q12H PRN PO 02/15/18 03:00 (Dulcolax Supp) 10 mg DAILY PRN RECTAL 02/15/18 03:00 (Lactulose Liq) 30 ml DAILY PRN PO 02/15/18 03:00 (Ecotrin Ec) 81 mg DAILY PO 02/15/18 09:00 02/15/18 08:48 (Lipitor) 40 mg DAILY PO 02/15/18 09:00 02/15/18 08:49 (Nitroglycerin 2% Oint) 0.5 inch Q6HR PRN TOPICAL 02/15/18 03:00 (Lopressor) 25 mg Q12HR PO 02/15/18 09:00 02/15/18 21:17 (D50w (Vial) Inj) 50 ml UNSCH PRN IV PUSH 02/15/18 04:15 (Glucagon Inj) 1 mg UNSCH PRN OTHER 02/15/18 04:15 (NovoLOG SUPPLEMENTAL SCALE) 1 ACHS SLIDING SCALE SQ 02/15/18 08:00 02/15/18 21:20 (Pneumovax-23 Inj) 25 mcg ONCE ONCE IM 02/16/18 10:00 02/16/18 10:01 (Flu (Quadrivalent) Vaccine Inj) 0.5 ml ONCE ONCE IM 02/16/18 10:00 02/16/18 10:01 Vital Signs / I&O Vital Signs Date Time Temp Pulse Resp B/P (MAP) Pulse Ox O2 Delivery O2 Flow Rate FiO2 02/15/18 20:15 79 02/15/18 20:15 78 16 136/75 (95) 99 02/15/18 18:00 74 02/15/18 17:00 74 02/15/18 16:00 98.1 72 18 138/72 (94) 99 02/15/18 16:00 69 02/15/18 13:00 76 02/15/18 12:00 77 02/15/18 12:00 98.2 77 16 126/72 (90) 95 02/15/18 11:00 76 02/15/18 10:00 84 02/15/18 09:00 81 02/15/18 08:00 86 02/15/18 08:00 98.6 86 18 158/83 (108) 97 I/O 02/15/18 02/15/18 02/15/18 02/16/18 02/16/18 02/16/18 07:00 15:00 23:00 07:00 15:00 23:00 Intake Total 325 ml Output Total 300 ml Balance 25 ml Intake IV Total 325 ml Output Urine Total 300 ml Physical Exam GENERAL: SKIN: Warm and dry. HEAD: Atraumatic. Normocephalic. EYES: Pupils equal and round. No scleral icterus. ENT: No nasal bleeding or discharge. NECK: Trachea midline. No JVD. CARDIOVASCULAR: Regular rate and regularly irregular rhythm, no murmurs RESPIRATORY: No accessory muscle use. Clear to auscultation. Breath sounds equal bilaterally. GASTROINTESTINAL: Abdomen soft, non-tender, nondistended. Hepatic and splenic margins not palpable. MUSCULOSKELETAL: Extremities without clubbing, cyanosis, or edema. No obvious deformities. NEUROLOGICAL: Awake and alert. No obvious cranial nerve deficits. Normal speech. PSYCHIATRIC: Appropriate mood and affect; insight and judgment normal. Laboratory Laboratory Tests Test 02/15/18 08:32 02/15/18 10:15 02/15/18 14:40 02/16/18 05:26 Activated Partial Thromboplast Time 59.5 SEC 49.9 SEC 39.9 SEC Troponin I 1.59 NG/ML 4.42 NG/ML Triglycerides Level 30 MG/DL Cholesterol Level 67 MG/DL LDL Cholesterol 20 MG/DL HDL Cholesterol 40.7 MG/DL Cholesterol/HDL Ratio 1.64 RATIO White Blood Count 11.5 TH/MM3 Red Blood Count 4.22 MIL/MM3 Hemoglobin 12.7 GM/DL Hematocrit 37.6 % Mean Corpuscular Volume 89.0 FL Mean Corpuscular Hemoglobin 30.0 PG Mean Corpuscular Hemoglobin Concent 33.7 % Red Cell Distribution Width 13.6 % Platelet Count 170 TH/MM3 Mean Platelet Volume 11.3 FL Neutrophils (%) (Auto) 51.3 % Lymphocytes (%) (Auto) 41.7 % Monocytes (%) (Auto) 5.4 % Eosinophils (%) (Auto) 1.1 % Basophils (%) (Auto) 0.5 % Neutrophils # (Auto) 5.9 TH/MM3 Lymphocytes # (Auto) 4.8 TH/MM3 Monocytes # (Auto) 0.6 TH/MM3 Eosinophils # (Auto) 0.1 TH/MM3 Basophils # (Auto) 0.1 TH/MM3 CBC Comment DIFF FINAL Differential Comment Blood Urea Nitrogen 12 MG/DL Creatinine 1.02 MG/DL Random Glucose 197 MG/DL Total Protein 6.4 GM/DL Albumin 3.4 GM/DL Calcium Level 8.5 MG/DL Alkaline Phosphatase 74 U/L Aspartate Amino Transf (AST/SGOT) 27 U/L Alanine Aminotransferase (ALT/SGPT) 28 U/L Total Bilirubin 0.6 MG/DL Sodium Level 142 MEQ/L Potassium Level 3.7 MEQ/L Chloride Level 106 MEQ/L Carbon Dioxide Level 27.4 MEQ/L Anion Gap 9 MEQ/L Estimat Glomerular Filtration Rate 89 ML/MIN (Jenifer Ray) Assessment and Plan Problem List: (1) NSTEMI (non-ST elevated myocardial infarction) ICD Codes: I21.4 - Non-ST elevation (NSTEMI) myocardial infarction Assessment and Plan 67 yo AAM with CAD and multiple prior stenting followed by can washer in [place], with HTN, HLD and diabetes who presents with exertional chest pain. Last week he held Plavix x 1 week for low back injection; his low back felt so much better after injection that he's been more physically active. He drove down to the [employer] and upon walking from car to front door he developed anterior chest pain reminiscent of prior [place]. NSTEMI- no chest pain overnight troponins trending upward: 0.12-->1.59-->4.42 ventricular bigeminy and trigeminy echo ordered const asa, statin, bb heparin plan for lexiscan today keep npo (Jenifer Ray) Assessment and Plan known obstructive CAD on recent LHC in [place] SPECT likely not helpful Plan for LHC. Attempted LHC yesterday, but patient just received spinal injections on 02/14/18 and I was worried about spinal bleed/hematoma with anticoagulation. Plan for Tues AM LHC. chest pain free (Taj Cole MD) Jenifer Ray February 16, 2018 07:46 Taj Cole MD February 16, 2018 11:21
[2018-02-16] MEDS: INSULIN ASPART SUPPLEMENTAL SCALE SQ SCH ×4 (08:18→21:22)
[2018-02-16] MEDS: SODIUM CHLOR 0.9% 1000 ML INJ 1,000 ML IV SCH ×2 (09:36→18:16)
[2018-02-16] MEDS: ATORVASTATIN 40 MG TAB PO SCH (09:37)
[2018-02-16] MEDS: METOPROLOL TARTRATE 25 MG TAB PO SCH ×3 (09:37→21:18)
[2018-02-16] MEDS: ASPIRIN EC 81 MG TABEC PO SCH (09:37)
[2018-02-16] MEDS: SODIUM CHLORIDE 0.9% FLUSH 10 ML FLUSH IV FLUSH SCH ×2 (09:37→21:17)
[2018-02-16] MEDS: DOCUSATE SODIUM 50 MG/SENNA 8.6 MG TAB PO SCH ×2 (09:37→21:00)
--- NOTE | 2018-02-16 09:44 | HHI.PR ---
Subjective Remarks no complains of chest pain telemetry- sinus with PVCs/bigeminy now no chest pain or shortness of breath denies any leg swelling or orthopnea patient is an avid poker player d Objective Vitals Vital Signs Date Time Temp Pulse Resp B/P (MAP) Pulse Ox O2 Delivery O2 Flow Rate FiO2 02/16/18 07:56 97.6 54 16 110/44 (66) 99 02/16/18 04:00 80 02/16/18 04:00 68 16 150/80 (103) 99 02/16/18 00:00 77 16 144/74 (97) 100 02/16/18 00:00 65 02/15/18 20:15 79 02/15/18 20:15 78 16 136/75 (95) 99 02/15/18 18:00 74 02/15/18 17:00 74 02/15/18 16:00 98.1 72 18 138/72 (94) 99 02/15/18 16:00 69 02/15/18 13:00 76 02/15/18 12:00 77 02/15/18 12:00 98.2 77 16 126/72 (90) 95 02/15/18 11:00 76 02/15/18 10:00 84 I/O 02/15/18 02/15/18 02/15/18 02/16/18 02/16/18 02/16/18 07:00 15:00 23:00 07:00 15:00 23:00 Intake Total 325 ml 240 ml Output Total 300 ml 200 ml Balance 25 ml 40 ml Intake Oral 240 ml IV Total 325 ml Output Urine Total 300 ml 200 ml # Voids 2 Result Diagram: 02/16/18 0526 02/16/18 0526 Imaging Last Impressions Chest X-Ray 02/15/18 0105 Signed Impressions: CONCLUSION: No evidence of acute cardiopulmonary disease. Objective Remarks awake and alert, no acute distress anciteric lungs- no rales regular rhythm with PVCs abdomens oft, nontender xtremiteis no edema neuroe xam- non focal A/P Problem List: (1) NSTEMI (non-ST elevated myocardial infarction) ICD Code: I21.4 - Non-ST elevation (NSTEMI) myocardial infarction (2) HTN (hypertension) ICD Code: I10 - Essential (primary) hypertension (3) DM (diabetes mellitus) ICD Code: E11.9 - Type 2 diabetes mellitus without complications Assessment and Plan 67 years old male NSTEMI: continue Heparin drip, aspirin, BB and statin- cardiology ff- plan for Lexiscan study today HTN: overall improved- continue BB- will monitor and adjust the regimen as needed. DM: Sliding scale w/ Accu-Cheks. Hgb A1c pending. states good hypoglycemic awareness DVT Prophylaxis: Heparin gtt Discharge Planning pending cardiac w/u. patient is from [place] Jeannie Lopez MD February 16, 2018 09:44
[2018-02-16] MEDS ORDERED: PNEUMOCOCCAL POLYVALENT INJ 25 MCG/0.5 ML SYR IM ONE (10:00)
[2018-02-16] MEDS ORDERED: INFLUENZA VIRUS VACCINE (QUADRIVALENT) 0.5 ML SYR IM ONE (10:00)
--- NOTE | 2018-02-16 12:05 | ECHRPT ---
Indication: CHEST PAIN CONCLUSIONS The left ventricular systolic function is low normal with an estimated ejection fraction in the rang e of 50- 55%. Normal left ventricular size. Wall thickness is normal. Trace mitral valve regurgitation. Aortic valve sclerosis is present. Mild aortic valve regurgitation. Trivial pulmonary valve regurgitation. BP: / HR: Rhythm: Sinus MEASUREMENTS (Male / Female) Normal Values Technical Quality:Good 2D ECHO LV Diastolic Diameter PLAX 6.0 cm 4.2 - 5.9 / 3.9 - 5.3 cm LV Systolic Diameter PLAX 5.1 cm IVS Diastolic Thickness 1.1 cm 0.6 - 1.0 / 0.6 - 0.9 cm LVPW Diastolic Thickness 1.1 cm 0.6 - 1.0 / 0.6 - 0.9 cm LV Relative Wall Thickness 0.4 RV Internal Dim ED PLAX 2.5 cm LVOT Diameter 2.0 cm LA Systolic Diameter LX 4.0 cm 3.0 - 4.0 / 2.7 - 3.8 cm LV Ejection Fraction MOD 4C 49.7 % LV Ejection Fraction 4C AL 50.8 % M-MODE Aortic Root Diameter MM 2.2 cm LA Systolic Diameter MM 4.0 cm LA Ao Ratio MM 1.8 AV Cusp Separation MM 1.5 cm DOPPLER AV Peak Velocity 193.0 cm/s AV Peak Gradient 14.9 mmHg AI Peak Velocity 380.0 cm/s AI Peak Gradient 57.8 mmHg AI Pressure Half Time 376.0 ms LVOT Peak Velocity 124.0 cm/s LVOT Peak Gradient 6.2 mmHg AV Area Cont Eq pk 2.0 cm MV Area PHT 3.4 cm Mitral E Point Velocity 98.2 cm/s Mitral A Point Velocity 86.9 cm/s Mitral E to A Ratio 1.1 LV E' Lateral Velocity 8.7 cm/s Mitral E to LV E' Lateral Ratio 11.3 LV E' Septal Velocity 3.9 cm/s Mitral E to LV E' Septal Ratio 25.2 PV Peak Velocity 121.0 cm/s PV Peak Gradient 5.9 mmHg FINDINGS LEFT VENTRICLE The left ventricular systolic function is low normal with an estimated ejection fraction in the rang e of 50- 55%. Normal left ventricular size. Wall thickness is normal. RIGHT VENTRICLE Normal right ventricular size and systolic function. LEFT ATRIUM The left atrial size is normal. RIGHT ATRIUM The right atrial size is normal. ATRIAL SEPTUM Normal atrial septal thickness without atrial level shunting by limited color doppler interrogation. AORTA The aortic root and proximal ascending aorta are normal in size on limited imaging. MITRAL VALVE Structurally normal mitral valve. Trace mitral valve regurgitation. AORTIC VALVE Trileaflet aortic valve. Aortic valve sclerosis is present. Mild aortic valve regurgitation. TRICUSPID VALVE Structurally normal tricuspid valve. No tricuspid valve stenosis or regurgitation. PULMONARY VALVE Trivial pulmonary valve regurgitation. VESSELS The inferior vena cava is normal in size. PERICARDIUM No pericardial effusion. Taj Cole MD, FACC (Electronically Signed) Final Date:16 Feb 2018 12:04
--- NOTE | 2018-02-16 13:12 | EKG ---
Date Performed: 02/15/2018 Time Performed: 17:29:20 PTAGE: 67 years EKG: Sinus rhythm with bigeminal PVCs Inferior infarct - age undetermined Possible left ventricular hypertrophy Latera l ST-T changes may be due to hypertrophy and/or ischemia Abnormal ECG Compared to PREVIOUS TRACING , T wave changes anterolaterally are new. PREVIOUS TRACIN02/15/2018 0 0.54 DOCTOR: Dougie Allison Interpretating Date/Time 02/16/2018 13:12:44
[2018-02-17] VITALS (20 sets, daily range): BP systolic 122–169; BP diastolic 67–87; PULSE 37–94; RESP 16–18; TEMP 97.9–98.4; O2SAT 97–100
[2018-02-17] MEDS: SODIUM CHLOR 0.9% 1000 ML INJ 1,000 ML IV SCH ×2 (03:48→20:54)
--- NOTE | 2018-02-17 07:54 | PD.CARD.PN ---
Subjective Subjective Remarks resting comfortably overnight. no chest pain, sob or palpitations. (Jenifer Ray) Objective Medications Current Medications Medications (Trade) Dose Ordered Sig/Chuck Route Start Time Stop Time Status Last Admin (NS Flush) 2 ml UNSCH PRN IVF 02/15/18 01:15 Sodium Chloride 1,000 ml @ 100 mls/hr Q10H IV 02/15/18 02:46 02/17/18 03:48 (NS Flush) 2 ml UNSCH PRN IV FLUSH 02/15/18 03:00 (NS Flush) 2 ml BID IV FLUSH 02/15/18 09:00 02/16/18 21:17 (Reglan Inj) 5 mg Q6H PRN IV PUSH 02/15/18 03:00 (Tylenol) 650 mg Q6H PRN PO 02/15/18 03:00 ([place] 5-325 Mg) 1 tab Q4H PRN PO 02/15/18 03:00 (Morphine Inj) 2 mg Q3H PRN IV PUSH 02/15/18 03:00 (Nancy-Colace) 1 tab BID PO 02/15/18 09:00 02/16/18 09:37 (Milk Of Magnesia Liq) 30 ml Q12H PRN PO 02/15/18 03:00 (Senokot) 17.2 mg Q12H PRN PO 02/15/18 03:00 (Dulcolax Supp) 10 mg DAILY PRN RECTAL 02/15/18 03:00 (Lactulose Liq) 30 ml DAILY PRN PO 02/15/18 03:00 (Ecotrin Ec) 81 mg DAILY PO 02/15/18 09:00 02/16/18 09:37 (Lipitor) 40 mg DAILY PO 02/15/18 09:00 02/16/18 09:37 (Nitroglycerin 2% Oint) 0.5 inch Q6HR PRN TOPICAL 02/15/18 03:00 (Lopressor) 25 mg Q12HR PO 02/15/18 09:00 02/16/18 09:37 (D50w (Vial) Inj) 50 ml UNSCH PRN IV PUSH 02/15/18 04:15 (Glucagon Inj) 1 mg UNSCH PRN OTHER 02/15/18 04:15 (NovoLOG SUPPLEMENTAL SCALE) 1 ACHS SLIDING SCALE SQ 02/15/18 08:00 02/16/18 21:22 Vital Signs / I&O Vital Signs Date Time Temp Pulse Resp B/P (MAP) Pulse Ox O2 Delivery O2 Flow Rate FiO2 02/17/18 06:17 77 02/17/18 05:33 71 16 100 02/17/18 05:33 72 02/17/18 04:07 72 02/17/18 03:00 62 02/17/18 01:01 68 02/17/18 00:12 37 16 122/74 (90) 100 02/17/18 00:00 88 02/17/18 00:00 81 02/16/18 23:00 84 02/16/18 22:00 80 02/16/18 21:30 75 02/16/18 21:09 98.2 40 16 122/74 (90) 100 02/16/18 21:00 84 02/16/18 20:00 72 02/16/18 19:00 78 02/16/18 18:00 96 02/16/18 17:00 70 02/16/18 16:00 80 02/16/18 15:04 98.0 75 16 149/85 (106) 100 02/16/18 15:00 66 02/16/18 14:00 66 02/16/18 13:00 77 02/16/18 12:00 76 02/16/18 11:12 98.3 63 16 146/62 (90) 99 02/16/18 11:00 72 02/16/18 10:00 74 02/16/18 09:00 66 02/16/18 08:00 68 02/16/18 07:56 97.6 54 16 110/44 (66) 99 I/O 02/16/18 02/16/18 02/16/18 02/17/18 02/17/18 02/17/18 07:00 15:00 23:00 07:00 15:00 23:00 Intake Total 240 ml 1000 ml 2282 ml 240 ml Output Total 200 ml 1400 ml 1000 ml Balance 40 ml 1000 ml 882 ml -760 ml Intake Oral 240 ml 1282 ml 240 ml IV Total 1000 ml 1000 ml Output Urine Total 200 ml 1400 ml 1000 ml # Voids 2 # Bowel Movements 2 Physical Exam GENERAL: SKIN: Warm and dry. HEAD: Atraumatic. Normocephalic. EYES: Pupils equal and round. No scleral icterus. ENT: No nasal bleeding or discharge. NECK: Trachea midline. No JVD. CARDIOVASCULAR: Regular rate and irregular rhythm with ectopic beats, no murmurs RESPIRATORY: No accessory muscle use. Clear to auscultation. Breath sounds equal bilaterally. GASTROINTESTINAL: Abdomen soft, non-tender, nondistended. MUSCULOSKELETAL: Extremities without clubbing, cyanosis, or edema. No obvious deformities. NEUROLOGICAL: Awake and alert. No obvious cranial nerve deficits. Normal speech. PSYCHIATRIC: Appropriate mood and affect; insight and judgment normal. (Jenifer Ray) Assessment and Plan Problem List: (1) NSTEMI (non-ST elevated myocardial infarction) ICD Codes: I21.4 - Non-ST elevation (NSTEMI) myocardial infarction Assessment and Plan 67 yo AAM with CAD and multiple prior stenting followed by last sorter in [place], with HTN, HLD and diabetes who presents with exertional chest pain. Last week he held Plavix x 1 week for low back injection; his low back felt so much better after injection that he's been more physically active. He drove down to the [employer] and upon walking from car to front door he developed anterior chest pain reminiscent of prior [place]. NSTEMI- no chest pain troponins trending upward: 0.12-->1.59-->4.42 ventricular bigeminy and trigeminy EF 50-55% const asa, statin, bb heparin plan for C tomorrow keep npo after midnight (Jenifer Ray) Assessment and Plan LHC 7:30AM tomorrow (Taj Cole MD) Jenifer Ray February 17, 2018 07:54 Taj Cole MD February 17, 2018 10:30
[2018-02-17] MEDS: ATORVASTATIN 40 MG TAB PO SCH (08:45)
[2018-02-17] MEDS: INSULIN ASPART SUPPLEMENTAL SCALE SQ SCH ×4 (08:45→20:54)
[2018-02-17] MEDS: ASPIRIN EC 81 MG TABEC PO SCH (08:45)
[2018-02-17] MEDS: DOCUSATE SODIUM 50 MG/SENNA 8.6 MG TAB PO SCH ×2 (08:46→20:54)
[2018-02-17] MEDS: SODIUM CHLORIDE 0.9% FLUSH 10 ML FLUSH IV FLUSH SCH ×2 (08:46→20:54)
--- NOTE | 2018-02-17 10:19 | HHI.PR ---
Subjective Remarks patient up and ambulating telemetry- sinus with occasional PVCs no chest pain or shortness of breath discuss with him blood sugar readings A1C 8.0 now states he is on Lantus 5 units am and Metformin 1 gm bid Objective Vitals Vital Signs Date Time Temp Pulse Resp B/P (MAP) Pulse Ox O2 Delivery O2 Flow Rate FiO2 02/17/18 08:00 74 02/17/18 08:00 97.9 74 16 169/74 (105) 97 02/17/18 06:17 77 02/17/18 05:33 71 16 100 02/17/18 05:33 72 02/17/18 04:07 72 02/17/18 03:00 62 02/17/18 01:01 68 02/17/18 00:12 37 16 122/74 (90) 100 02/17/18 00:00 88 02/17/18 00:00 81 02/16/18 23:00 84 02/16/18 22:00 80 02/16/18 21:30 75 02/16/18 21:09 98.2 40 16 122/74 (90) 100 02/16/18 21:00 84 02/16/18 20:00 72 02/16/18 19:00 78 02/16/18 18:00 96 02/16/18 17:00 70 02/16/18 16:00 80 02/16/18 15:04 98.0 75 16 149/85 (106) 100 02/16/18 15:00 66 02/16/18 14:00 66 02/16/18 13:00 77 02/16/18 12:00 76 02/16/18 11:12 98.3 63 16 146/62 (90) 99 02/16/18 11:00 72 I/O 02/16/18 02/16/18 02/16/18 02/17/18 02/17/18 02/17/18 07:00 15:00 23:00 07:00 15:00 23:00 Intake Total 240 ml 1000 ml 2282 ml 240 ml Output Total 200 ml 1400 ml 1000 ml Balance 40 ml 1000 ml 882 ml -760 ml Intake Oral 240 ml 1282 ml 240 ml IV Total 1000 ml 1000 ml Output Urine Total 200 ml 1400 ml 1000 ml # Voids 2 # Bowel Movements 2 Result Diagram: 02/16/18 0502/16/18 05 Imaging Last Impressions Chest X-Ray 02/15/18 0105 Signed Impressions: CONCLUSION: No evidence of acute cardiopulmonary disease. Objective Remarks awake and alert, no acute distress anicteric lungs- no rales regular rhythm with PVCs abdomens oft, nontender extremities no edema neuro exam- non focal A/P Problem List: (1) NSTEMI (non-ST elevated myocardial infarction) ICD Code: I21.4 - Non-ST elevation (NSTEMI) myocardial infarction (2) HTN (hypertension) ICD Code: I10 - Essential (primary) hypertension (3) DM (diabetes mellitus) ICD Code: E11.9 - Type 2 diabetes mellitus without complications Assessment and Plan 67 years old male NSTEMI: HTN: overall improved- continue BB will monitor and adjust the regimen as needed. - continue Heparin drip, aspirin, BB and statin- cardiology ff- - plan for cardiac cath in am - ECho EF 55%. consider HANNAH for additional BP control if needed DM: Sliding scale w/ Accu-Cheks. A1C 8.0 -as OP on lantus 5 units q am + metformin 1 gm bid - will start levemer 5 units aq am- continue sliding scale - will not start metformin- for cath tomorrow - states good hypoglycemic awareness - diabetes education and diettiian consult DVT Prophylaxis: Heparin gtt Discharge Planning pending cardiac w/u. patient is from [place] Jeannie Lopez MD February 17, 2018 10:19
[2018-02-17] MEDS: INSULIN DETEMIR 100 UNITS/ML VIAL SQ SCH (10:36)
[2018-02-17] MEDS: METOPROLOL TARTRATE 25 MG TAB PO SCH (20:54)
[2018-02-18] VITALS (17 sets, daily range): BP systolic 132–164; BP diastolic 60–89; PULSE 63–103; RESP 16–18; TEMP 97.8–98.5; O2SAT 98–100
[2018-02-18 06:16] LABS: HEMATOCRIT 39.6 % (39.0-51.0); HEMOGLOBIN 13.3 GM/DL (13.0-17.0); MEAN CELL VOLUME 89.6 FL (80.0-100.0); MEAN CORPUSCULAR HEMOGLOBIN 30.1 PG (27.0-34.0); MEAN CORPUSCULAR HGB CONC 33.6 % (32.0-36.0); MEAN PLATELET VOLUME 11.5 FL (7.0-11.0); PLATELET COUNT 175 TH/MM3 (150-450); RED BLOOD COUNT 4.42 MIL/MM3 (4.50-5.90); RED CELL DISTRIBUTION WIDTH 13.4 % (11.6-17.2); WHITE BLOOD COUNT 9.2 TH/MM3 (4.0-11.0)
[2018-02-18] MEDS ORDERED: MIDAZOLAM HCL 2 MG/2 ML VIAL ONE ×2 (07:20→07:35)
[2018-02-18] MEDS ORDERED: HEPARIN-NS/PF INJ 1,500 ML ONE (07:20)
[2018-02-18] MEDS ORDERED: HEPARIN SODIUM - IV 10,000 UNITS/10 ML VIAL ONE (07:21)
[2018-02-18] MEDS ORDERED: NITROGLYCERIN INJ 5 ML ONE (07:22)
[2018-02-18] MEDS ORDERED: BIVALIRUDIN 250 MG VIAL ONE (07:49)
[2018-02-18] MEDS ORDERED: CLOPIDOGREL 300 MG TAB ONE (07:58)
[2018-02-18] MEDS ORDERED: BIVALIRUDIN INJ 250 MG in SODIUM CHLORIDE 0.9% INJ 50 ML IV SCH (08:02)
[2018-02-18] MEDS: SODIUM CHLOR 0.9% 1000 ML INJ 1,000 ML IV SCH ×2 (08:05→18:05)
--- NOTE | 2018-02-18 08:12 | CATHPROC ---
[facility] HIS Report Study Information Study Number Admission Scheduled Start Study Start [id number] Feb 15 2018 3:13AM 02/16/2018 Feb 18 2018 6:47AM [place] [facility] Cardiac Catheterization Admit Source Facility Department Emergency department [facility] - [facility] Physician and Clinical Staff Initial [facility] Manager Justo RN, Luis Recorder Shanda Chavez,RT(R) (BS) Scrub Renetta Jain,RT(R) Procedures Performed Procedure Location (Site) Vessel Name Coronary Angiograms LCA Left Coronary Coronary Angiograms RCA Right Coronary L Heart Cath PTCA ADD ON'S Stent LAD Prox Left Coronary Wire insertion Radial (right) Radial Art. Equipment Time Caddie Description Size Mfg Part Number Used/Scraped [id number] 07:40 [employer] MEDICAL WIRE, NITONOL 80CM 80CM Used *[id number] TRANSDUCER, TRUWAVE [id number] 07:07 ARREOLA AMARO * Used W/STOCKCOCK *[id number] 534-518T *[id number] 534-523T *[id number] *[id number] 07:07 [employer] INDUSTRIES PACK, CCL CUSTOM * Used *[id number] 07:07 [employer] SUPPORT, ARTERIAL ADULT 50026 *[id number] Used [id number] 07:07 [employer]ival PACER PEN, SKIN DUAL W/ RULER * Used *[id number] 07:54 MED[employer]IC STENT, 4.0 12 INTEGRITY 4.0 12 Used *[id number] 07:48 Exam18 30 TERRY INDEFLATOR Used *[id number] BAND, RADIAL COMPRESSION TR [id number] 07:59 [email or web address] MEDICAL 24CM Used SHORT 24 *[id number] SHEATH, FR6 RADIAL PRELUDE 07:07 Exam18 FR 6 [id number] Used EASE 11CM [id number] 07:07 [email or web address] MEDICAL WIRE, EXCHANGE 260CM 3MMJ 260CM Used *[id number] 07:07 NAMIC MANIFOLD, 4 PORT * Used *[id number] 07:07 NYCOMED OMNIPAQUE, 350 MG, 150ML 150ML [id number] Used 07:48 NYCOMED OMNIPAQUE, 350 MG, 150ML 150ML [id number] Used [id number] 07:07 ALVAREZ MEDICAL BLANKET,WARM AIR CCL * Used *[id number] WIRE, RUNTHROUGH NS FLOPPY [id number] 07:49 TERUMO MEDICAL 180CM Used .014 180CM *[id number] Equipment Model, Serial, Lot Number and Expiration Data Description Model Number Serial Number Lot Number Expiration Date STENT, 4.0 12 INTEGRITY [id number] 06-11-2019 History: Current Medications Medication Dosage/Unit Route Frequency Last Date/Time Taken Beta Ernesto Statins (any) ASA History: Allergies Allergy Reaction No Known Allergies History: Risk Factors Family History of Hypertension Dyslipidemia Previous NE Previous Heart Failure Premature CAD Yes Yes Yes No No Prior Valve Prior PCI Prior PCIDate Prior CABG Surgery No Yes 01/22/2016 No Cerebrovascular Peripheral Artery Chronic Lung On Dialysis Diabetes Diabetes Therapy Disease Disease Disease No No No No Yes Insulin History: Symptoms/Diagnosis Selection Items Chest pain History: Stress Tests Stress or Imaging Studies Performed No History: Other Current Smoker Method Quit Packs a Day Years Used Pack Years No Cigarettes 39 Years Ago 1 3 3 Labs Hgb (g/dl) Hct (%) WBC (l/cumm) Platelets (thousands) 11.60-17.00 35.00-51.00 4.00-11.00 150.00-450.00 13.3 39.9 9.2 175 Glucose (mg/dl) BUN (mg/dl) Creatinine (mg/dl) BUN:Creatinine (1:x) 74.00-106.00 7.00-18.00 0.50-1.30 10.00-20.00 197 12 1.0 12 Na (meq/l) K (meq/l) 136.00-145.00 3.50-5.10 142 3.7 INR (PTT:PT) 0.90-1.10 1 Troponin I (ng/ml) CPK-MB (ng/ML) 0.02-0.05 0.50-3.60 4.42 Not Drawn Medication Medication Total Dose (Bolus/Oral) Medication Total Dosage/Unit 1% XYLOCAINE 1 mL ANGIOMAX BOLUS 14 mL FENTANYL 100 mcg HEPARIN 3000 units NTG (IC) 200 mcg PLAVIX 600 mg VERSED 3 mg Medications (Bolus/Oral) Medication Time Given Dosage/Unit Administered By Reason VERSED 02/18/2018 7:32:38 AM 2 mg Luis Kemp RN 2 mg VERSED given in lab by Luis Kemp RN in Left Antecubital via Peripheral IV. FENTANYL 02/18/2018 7:33:52 AM 50 mcg Luis Kemp RN 50 mcg FENTANYL given in lab by Luis Kemp RN in Left Antecubital via Peripheral IV. VERSED 02/18/2018 7:36:28 AM 1 mg Luis Kemp RN 1 mg VERSED given in lab by Luis Kemp RN in Left Antecubital via Peripheral IV. FENTANYL 02/18/2018 7:37:00 AM 50 mcg Luis Kemp RN 50 mcg FENTANYL given in lab by Luis Kemp RN in Left Antecubital via Peripheral IV. 1% XYLOCAINE 02/18/2018 7:39:51 AM 1 mL Taj Cole 1 mL 1% XYLOCAINE given in lab by Taj Cole in Right Radial via Subcutaneous. NTG (IC) 02/18/2018 7:41:02 AM 200 mcg Taj Cole 200 mcg NTG (IC) given in lab by Taj Cole in Right Radial via Intra-arterial. HEPARIN 02/18/2018 7:41:25 AM 3000 units Taj Cole 3000 units HEPARIN given in lab by Taj Cole in Left Antecubital via Peripheral IV. ANGIOMAX BOLUS 02/18/2018 7:51:29 AM 14 mL Luis Kemp RN 14 mL ANGIOMAX BOLUS given in lab by Luis Kemp RN in Left Antecubital via Peripheral IV. PLAVIX 02/18/2018 7:59:56 AM 600 mg Lius Kemp RN 600 mg PLAVIX given in lab by Luis Kemp RN via Oral. Medication (Drip) Medication Time Given Dosage/Unit Concentration/Unit Diluent (ml) Solutio n ANGIOMAX DRIP 02/18/2018 7:52:00 AM 1.755 mg/kg/hr 250 mg 50 NaCl .9 1.755 mg/kg/hr ANGIOMAX DRIP given in lab by Luis Kemp RN in Left Antecubital via Peripheral IV. P ump/Drip Flow = 32.6 ml/hr using NaCl .9 with a concentration of 250 mg in 50 ml. IV Solutions 02/18/2018 7:10:47 AM 0 mL (IV) 500 NaCl .9 Patient arrived on IV Solutions in Left Antecubital via Peripheral IV. Pump/Drip Flow = 20 ml/hr usin g NaCl .9. Initial Case Assessment Cardiovascular HR Rhythm NIBP Chest Pain 85 nsr 184/99 0 Edema Present Skin color Skin None Normal Warm Dry Circulatory - Right Pulses Dorsalis Pedis Femoral Radial 2 2 2 Scale (0,1,2,3,4,d) Scale (0,1,2,3,4,d) Neurological State Oriented to time-place- Alert Moves all extremities person Respiration - General Respiration Rate SpO2 (%) (B/min) 15 97 Chronological Log Time Study Chronological Log 7:10:17 Patient arrived via Bed. 7:10:17 Patient Name, D.O.B, / Armband Verified By R.N. 7:10:18 Consent signed by the physician and the patient and verified by the [facility] staff. 7:10:19 Pre-op and post- op instructions given; patient acknowledges understanding of instructions. 7:10:24 Verbal Stimulation=2 Physical Stimulation=2 Airway=2 Respiration=2 TOTAL=8. (0=absent, 1=li mited, 2=present) 7:10:24 Presedation assessment performed by Manager [facility] RN. 7:10:25 Allens test performed on the right radial and ulnar artery. POSITIVE. 7:10:38 Immediate Presedation assesment performed by physician. 7:10:39 Patient has been NPO for More than 6Hrs. 7:10:40 Skin Breakdown- none per patient 7:10:42 Patient Warmer Placed on the Table. 7:10:42 Layton Prominences Protected 7:10:46 A # 20 IV was noted in the Antecubital (left). Grade = 0 7:10:47 Patient arrived on IV Solutions in Left Antecubital via Peripheral IV. Pump/Drip Flow = 20 ml/hr using NaCl .9. 7:10:51 History and physical on the chart or being dictated. Vitals capture started with the following parameters, Patient=Adult, Interval=5 min, Initial Pr vkjmxj=096 mmHg, 7:15:12 Deflation Rate=5 mmHg, Cuff placed on Left Arm Assessment: Initial Case, HR=85 BPM, Rhythm=nsr, HYJL=676/99 mmhg, Chest Pain=0, Edema=None, Co sully=Normal, Skin = Warm, Dry 7:16:47 Right Pulses: Seth Ped=2, Femoral=2, Radial=2 Neurological: State=Alert, Ox3, [place] Respiration: Resp=15 B/min, SpO2=97 % 7:16:55 HR=86 bpm, PQIB=763/99 mmhg, SpO2=97.0 %, Resp=14 B/min, Pain=0, Olena=10, Henriquez=2 7:20:12 Right Radial and groin(s) prepped with 2% chlorhexidine, and draped after a 3 min. waiting t jordyn. 7:21:54 HR=90 bpm, XKNG=161/119 mmhg, SpO2=98.0 %, Resp=12 B/min, Pain=0, Olena=10, Henriquez=2 7:26:04 HR=89 bpm, RWXW=844/107 mmhg, SpO2=97.0 %, Resp=20 B/min, Pain=0, Olena=10, Henriquez=2 7:30:58 HR=92 bpm, VQHI=076/122 mmhg, SpO2=97.0 %, Resp=12 B/min 7:31:59 Pressure channel 1 zeroed. 7:32:38 2 mg VERSED given in lab by Luis Kemp RN in Left Antecubital via Peripheral IV. 7:33:52 50 mcg FENTANYL given in lab by Luis Kemp RN in Left Antecubital via Peripheral IV. 7:36:28 1 mg VERSED given in lab by Luis Kemp RN in Left Antecubital via Peripheral IV. 7:36:53 HR=89 bpm, XFRV=196/110 mmhg, SpO2=96.0 %, Resp=9 B/min, Pain=0, Olena=10, Henriquez=2 7:37:00 50 mcg FENTANYL given in lab by Luis Kemp RN in Left Antecubital via Peripheral IV. Time Out. Correct patient, correct procedure, correct physician, labs, allergies, and equipment verified with pipelines laborer 7:37:23 team present. Fire risk assesment completed (see hard stop sheet for coding). Time Out Concu rred by MD and individual staff in procedure. 7:37:41 Case Start 7:39:51 1 mL 1% XYLOCAINE given in lab by Taj Cole in Right Radial via Subcutaneous. 7:40:23 Access site was right Radial Artery. A SHEATH, FR6 RADIAL PRELUDE EASE 11CM FR 6 was advanced into the Radial (right) using the Antonino augustin 7:40:34 technique. 7:40:54 In the Radial (right) the SHEATH, FR6 RADIAL PRELUDE EASE 11CM FR [address] by Taj Cole. 7:41:02 200 mcg NTG (IC) given in lab by Taj Cole in Right Radial via Intra-arterial. 7:41:09 HR=98 bpm, YZWM=090/140 mmhg, SpO2=96.0 %, Resp=9 B/min, Pain=0, Olena=10, Henriquez=2 7:41:25 3000 units HEPARIN given in lab by Taj Cole in Left Antecubital via Peripheral IV. A JR 5.0 INFINITI CATHETER FR 5 was advanced over a wire. OMNIPAQUE, 350 MG, 150ML 150ML was use d for 7:41:39 injections. Recorded Pressure: Ao, HR=97, Condition=Condition 1 7:42:45 (Aorta) Ao 178/78/128 7:43:34 The RCA was injected and visualized at various angles. OMNIPAQUE, 350 MG, 150ML 150ML used. After removing the current catheter a JL 3.5 INFINITI CATHETER FR 5 was advanced over a WIRE, EX CHANGE 260CM 7:43:55 3MMJ 260CM. 7:45:15 The LCA was injected and visualized at various angles. OMNIPAQUE, 350 MG, 150ML 150ML used. 7:46:08 HR=90 bpm, HUJQ=739/111 mmhg, SpO2=97.0 %, Resp=12 B/min, Pain=0, Olena=10, Henriquez=2 7:48:11 OMNIPAQUE, 350 MG, 150ML 150ML and 30 TERRY INDEFLATOR added. After removing the current catheter a XBLAD 4.0 GUIDE CATHETER FR 6 was advanced over a WIRE, EX CHANGE 7:49:29 260CM 3MMJ 260CM. 7:51:29 14 mL ANGIOMAX BOLUS given in lab by Luis Kemp RN in Left Antecubital via Peripheral IV. 7:51:58 HR=84 bpm, LYNK=675/122 mmhg, SpO2=97.0 %, Resp=10 B/min, Pain=0, Olena=10, Henriquez=2 1.755 mg/kg/hr ANGIOMAX DRIP given in lab by Luis Kemp RN in Left Antecubital via Peripheral IV. Pump/Drip Flow = 7:52:00 32.6 ml/hr using NaCl .9 with a concentration of 250 mg in 50 ml. 7:52:56 A WIRE, RUNTHROUGH NS FLOPPY .014 180CM 180CM was inserted via Radial (right). An STENT, 4.0 12 INTEGRITY 4.0 12 Bare Metal Stent was inserted through a XBLAD 4.0 GUIDE CATHET ER FR 6 over 7:55:39 a WIRE, RUNTHROUGH NS FLOPPY .014 180CM 180CM. A STENT, 4.0 12 INTEGRITY 4.0 12 was deployed using a 30 TERRY INDEFLATOR at 16 atmospheres for 11 seconds in 7:55:50 the LAD Prox. 7:55:58 HR=98 bpm, ZTVB=607/99 mmhg, SpO2=99.0 %, Resp=14 B/min, Pain=0, Olena=10, Henriquez=2 7:56:33 Delivery device removed 7:57:20 Wire removed 7:57:21 A WIRE, EXCHANGE 260CM 3MMJ 260CM was inserted via Radial (right). 7:57:30 Catheter was removed 7:57:31 Wire removed 7:57:39 Case End 7:58:11 CIC called. Spoke to Светлана. 7:58:39 Catheter(s) removed without difficulty Radial Compression Device Used. 13 mLs of air placed in BAND, RADIAL COMPRESSION TR SHORT 24 2 4CM. Affected 7:58:45 hand 100 % O2 saturation. 7:59:03 No case complications noted. 7:59:07 Bedside Report will be given. 7:59:08 Implantable Device card placed in patient's chart. 7:59:12 A Left Heart Cath was performed. 7:59:56 600 mg PLAVIX given in lab by Luis Kemp RN via Oral. 8:01:05 HR=81 bpm, PEPG=257/95 mmhg, SpO2=98.0 %, Resp=11 B/min, Pain=0, Olena=10, Henriquez=2 8:04:03 Vitals capture stopped. 8:04:57 Patient moved to [facility] End Study - Contrast Media Used In Study Contrast Total Opened (mL) Total Used (mL) Total Wasted (mL) Omnipaque 80 80 0 End Study - Maximum Contrast Load Max Contrast Load (mL) 464.5 End Study - Radiation Exposure Fluoro Time (minutes) 4.6 End Study - Sheaths Sheaths Pulled By Sheath Hold Time (min) Stone, Renetta End Study - Patient Disposition Complications Transferred To Interventional Outcome No Telemetry Bed successful
[2018-02-18] MEDS ORDERED: LIDOCAINE 2% JELLY 30 ML TUBE TOP PRN (08:15)
[2018-02-18] MEDS ORDERED: CLOPIDOGREL 300 MG TAB PO ONE (08:15)
[2018-02-18] MEDS ORDERED: MISC INFORMATION XX ONE (08:15)
[2018-02-18] MEDS ORDERED: BACITRACIN OINT 0.9 GM PKT TOP ONE (08:30)
--- NOTE | 2018-02-18 08:34 | MA ---
cc: Taj Cole MD DATE: 02/18/2018 INDICATION: Non-ST elevation myocardial infarction. PROCEDURE PERFORMED: 1. Fluoroscopy with interpretation. 2. Coronary angiography. 3. Percutaneous coronary intervention with bare-metal stent to the proximal left anterior descending coronary artery. METHOD: Risks, benefits and alternatives were discussed with the patient. The patient understood and consented to the procedure. DESCRIPTION OF PROCEDURE: The patient was brought into the catheterization lab and placed on the catheterization table. The right wrist was prepped and draped in a sterile fashion. The right wrist was anesthetized with 2% lidocaine. The right radial artery was cannulated and a 6-Armenian 7 cm sheath was placed without difficulty. 200 mcg of intraarterial nitroglycerin, in additional to 3000 units of intravenous heparin was administered. CORONARY ANGIOGRAPHY: 1. Left main coronary artery is angiographically normal. 2. Left anterior descending coronary has several stents present throughout the entire mid segment. Just proximal to the stent, there is an 80% discrete stenosis. Its difficult to visualize due to small overlap of the septal perforators. The distal left anterior descending coronary has mild to moderate diffuse disease, in addition to small diagonal branches. 3. Left circumflex also was a very small caliber sized vessel with a distal 80% stenosis in the obtuse marginal branch. 4. Right coronary is a very small caliber size 100% subtotally occluded in the mid segment and collateralized left to right. It is 1.5 mm sized vessel. PERCUTANEOUS INTERVENTION: The right coronary artery is too small for intervention. In addition, the obtuse marginal branch is rather distal and small caliber size. Left anterior descending coronary artery proximal vessels feeding quite a bit of distribution including the distal right coronary via septal perforators. Angiomax was administered throughout the entire procedure to maintain appropriate anticoagulation. A 6-Armenian XBLAD 4.0 guide catheter was engaged in the left main coronary artery. A 0.014 inch, 180 cm CTI Towers Runthrough wire was navigated down the distal left anterior descending coronary artery branch. A 4.0 x 12 mm RX bare-metal Integrity stent was then advanced and deployed in the proximal left anterior descending coronary artery. Repeat angiography showed no residual stenosis, CARLOS 3 flow. We elected to proceed with bare metal stenting given that the patient does receive periodic back injections and will need discontinuation of Plavix periodically for those. The guide catheter removed, sheath removed and HemoBand applied. CONCLUSIONS: 1. Severe 3-vessel coronary artery disease. 2. Successful percutaneous coronary intervention with bare-metal stent to the proximal left anterior descending coronary artery. PLAN: We will monitor the patient closely for any postprocedure complications. Again, we deployed a bare-metal stent due to frequent back injections and need for discontinuation of Plavix. We will start long-acting nitrate for small vessel disease. I would recommend medical management of the right coronary and obtuse marginal branch given the small caliber size. If he does well since we were able to do from a radial approach, he can anticipate discharge potentially later today. He will go home on aspirin, Plavix, beta sadia, long-acting nitrate and statin. Taj Cole MD JENNIFER/DL , 08:11 AM , 08:34 AM
[2018-02-18] MEDS: INSULIN ASPART SUPPLEMENTAL SCALE SQ SCH ×3 (08:45→17:37)
[2018-02-18] MEDS: ASPIRIN EC 81 MG TABEC PO SCH (08:46)
[2018-02-18] MEDS: METOPROLOL TARTRATE 25 MG TAB PO SCH (08:46)
[2018-02-18] MEDS: DOCUSATE SODIUM 50 MG/SENNA 8.6 MG TAB PO SCH (08:46)
[2018-02-18] MEDS: ATORVASTATIN 40 MG TAB PO SCH (08:46)
[2018-02-18] MEDS: INSULIN DETEMIR 100 UNITS/ML VIAL SQ SCH (08:46)
[2018-02-18] MEDS: SODIUM CHLORIDE 0.9% FLUSH 10 ML FLUSH IV FLUSH SCH (08:46)
[2018-02-18] MEDS ORDERED: ISOSORBIDE MONONITRATE 60 MG CR TAB (IMDUR) PO SCH (09:00)
[2018-02-18] MEDS: ACETAMINOPHEN 325 MG TAB PO PRN ×2 (09:46→18:29)
--- NOTE | 2018-02-18 11:20 | HHI.PR ---
Subjective Remarks Patient had cardiac catheterization today and had a bare-metal stent placed to the LAD Wants to go home later today Has been cleared by cardiology Can be discharged home later today to follow-up with his primary care physician and cardiology Objective Vitals Vital Signs Date Time Temp Pulse Resp B/P (MAP) Pulse Ox O2 Delivery O2 Flow Rate FiO2 02/18/18 10:00 72 02/18/18 09:00 88 02/18/18 08:15 97.8 65 16 155/74 (101) 98 02/18/18 07:00 103 02/18/18 06:00 67 02/18/18 04:00 98.4 69 16 164/71 (102) 98 02/18/18 04:00 69 02/18/18 00:00 98.5 65 18 132/72 (92) 99 02/18/18 00:00 65 02/17/18 20:00 98.4 63 18 138/69 (92) 98 02/17/18 20:00 63 02/17/18 18:00 82 02/17/18 17:00 70 02/17/18 16:00 98.0 69 16 165/67 (99) 100 02/17/18 16:00 75 02/17/18 15:00 74 02/17/18 14:00 72 02/17/18 13:00 94 02/17/18 12:00 81 02/17/18 12:00 98.2 82 16 161/87 (111) 100 I/O 02/17/18 02/17/18 02/17/18 02/18/18 02/18/18 02/18/18 07:00 15:00 23:00 07:00 15:00 23:00 Intake Total 240 ml 1020 ml 480 ml Output Total 1000 ml 1050 ml 650 ml Balance -760 ml -30 ml -170 ml Intake Oral 240 ml 1020 ml 480 ml Output Urine Total 1000 ml 1050 ml 650 ml # Bowel Movements 1 Result Diagram: 02/18/18 0508 02/16/18 0526 Other Results Laboratory Tests Test 02/15/18 14:40 02/16/18 05:26 02/18/18 05:08 Activated Partial Thromboplast Time 49.9 SEC 39.9 SEC White Blood Count 11.5 TH/MM3 9.2 TH/MM3 Red Blood Count 4.22 MIL/MM3 4.42 MIL/MM3 Hemoglobin 12.7 GM/DL 13.3 GM/DL Hematocrit 37.6 % 39.6 % Mean Corpuscular Volume 89.0 FL 89.6 FL Mean Corpuscular Hemoglobin 30.0 PG 30.1 PG Mean Corpuscular Hemoglobin Concent 33.7 % 33.6 % Red Cell Distribution Width 13.6 % 13.4 % Platelet Count 170 TH/MM3 175 TH/MM3 Mean Platelet Volume 11.3 FL 11.5 FL Neutrophils (%) (Auto) 51.3 % Lymphocytes (%) (Auto) 41.7 % Monocytes (%) (Auto) 5.4 % Eosinophils (%) (Auto) 1.1 % Basophils (%) (Auto) 0.5 % Neutrophils # (Auto) 5.9 TH/MM3 Lymphocytes # (Auto) 4.8 TH/MM3 Monocytes # (Auto) 0.6 TH/MM3 Eosinophils # (Auto) 0.1 TH/MM3 Basophils # (Auto) 0.1 TH/MM3 CBC Comment DIFF FINAL Differential Comment Blood Urea Nitrogen 12 MG/DL Creatinine 1.02 MG/DL Random Glucose 197 MG/DL Total Protein 6.4 GM/DL Albumin 3.4 GM/DL Calcium Level 8.5 MG/DL Alkaline Phosphatase 74 U/L Aspartate Amino Transf (AST/SGOT) 27 U/L Alanine Aminotransferase (ALT/SGPT) 28 U/L Total Bilirubin 0.6 MG/DL Sodium Level 142 MEQ/L Potassium Level 3.7 MEQ/L Chloride Level 106 MEQ/L Carbon Dioxide Level 27.4 MEQ/L Anion Gap 9 MEQ/L Estimat Glomerular Filtration Rate 89 ML/MIN Troponin I 4.42 NG/ML Imaging Last Impressions Chest X-Ray 02/15/18 0105 Signed Impressions: CONCLUSION: No evidence of acute cardiopulmonary disease. Objective Remarks GENERAL: Awake alert and oriented 3 talkative and cooperative wants to go home SKIN: Warm and dry. HEAD: Atraumatic. Normocephalic. EYES: Pupils equal and round. No scleral icterus. No injection or drainage. ENT: No nasal bleeding or discharge. Mucous membranes pink and moist. NECK: Trachea midline. No JVD. Supple CARDIOVASCULAR: Regular rate and rhythm. S1-S2 no S3 or S4 RESPIRATORY: No accessory muscle use. Clear to auscultation. Breath sounds equal bilaterally. GASTROINTESTINAL: Abdomen soft, non-tender, nondistended. Hepatic and splenic margins not palpable. MUSCULOSKELETAL: Extremities without clubbing, cyanosis, or edema. No obvious deformities. NEUROLOGICAL: Awake and alert. No obvious cranial nerve deficits. Motor grossly within normal limits. Five out of 5 muscle strength in the arms and legs. Normal speech. PSYCHIATRIC: Appropriate mood and affect; insight and judgment normal. Procedures Minor,Taj Donis MD DATE: 02/18/2018 INDICATION: Non-ST elevation myocardial infarction. PROCEDURE PERFORMED: 1. Fluoroscopy with interpretation. 2. Coronary angiography. 3. Percutaneous coronary intervention with bare-metal stent to the proximal left anterior descending coronary artery. METHOD: Risks, benefits and alternatives were discussed with the patient. The patient understood and consented to the procedure. DESCRIPTION OF PROCEDURE: The patient was brought into the catheterization lab and placed on the catheterization table. The right wrist was prepped and draped in a sterile fashion. The right wrist was anesthetized with 2% lidocaine. The right radial artery was cannulated and a 6-[place] 7 cm sheath was placed without difficulty. 200 mcg of intraarterial nitroglycerin, in additional to 3000 units of intravenous heparin was administered. CORONARY ANGIOGRAPHY: 1. Left main coronary artery is angiographically normal. 2. Left anterior descending coronary has several stents present throughout the entire mid segment. Just proximal to the stent, there is an 80% discrete stenosis. Its difficult to visualize due to small overlap of the septal perforators. The distal left anterior descending coronary has mild to moderate diffuse disease, in addition to small diagonal branches. 3. Left circumflex also was a very small caliber sized vessel with a distal 80% stenosis in the obtuse marginal branch. 4. Right coronary is a very small caliber size 100% subtotally occluded in the mid segment and collateralized left to right. It is 1.5 mm sized vessel. PERCUTANEOUS INTERVENTION: The right coronary artery is too small for intervention. In addition, the obtuse marginal branch is rather distal and small caliber size. Left anterior descending coronary artery proximal vessels feeding quite a bit of distribution including the distal right coronary via septal perforators. Angiomax was administered throughout the entire procedure to maintain appropriate anticoagulation. A 6-[place] XBLAD 4.0 guide catheter was engaged in the left main coronary artery. A 0.014 inch, 180 cm [employer] Runthrough wire was navigated down the distal left anterior descending coronary artery branch. A 4.0 x 12 mm RX bare-metal Integrity stent was then advanced and deployed in the proximal left anterior descending coronary artery. Repeat angiography showed no residual stenosis, CARLOS 3 flow. We elected to proceed with bare metal stenting given that the patient does receive periodic back injections and will need discontinuation of Plavix periodically for those. The guide catheter removed, sheath removed and HemoBand applied. CONCLUSIONS: 1. Severe 3-vessel coronary artery disease. 2. Successful percutaneous coronary intervention with bare-metal stent to the proximal left anterior descending coronary artery. PLAN: We will monitor the patient closely for any postprocedure complications. Again, we deployed a bare-metal stent due to frequent back injections and need for discontinuation of Plavix. We will start long-acting nitrate for small vessel disease. I would recommend medical management of the right coronary and obtuse marginal branch given the small caliber size. If he does well since we were able to do from a radial approach, he can anticipate discharge potentially later today. He will go home on aspirin, Plavix, beta sadia, long-acting nitrate and statin. Medications and IVs Current Medications Labetalol HCl (Trandate Inj) 10 mg ONCE STAT IV PUSH Last administered on 02/15at :27; Start 02/15/18 at 01:02; Stop 02/15/18 at 01:06; Status DC Morphine Sulfate (Morphine Inj) 2 mg ONCE ONCE IV PUSH Last administered on at :27; Start 02/15/18 at 01:15; Stop 02/15/18 at 01:16; Status DC Sodium Chloride (NS Flush) 2 ml UNSCH PRN IVF FLUSH AFTER USING IV ACCESS; Start 02/15/18 at 01:15 Heparin Sodium (Porcine) (Heparin Inj) 4,000 units ONCE ONCE IV Last administered on 02/15/18at 03:03; Start 02/15/18 at 02:45; Stop 02/15/18 at 02:46 ; Status DC Heparin Sodium/ Dextrose 250 ml @ 10 mls/hr TITRATE PRN IV Coagulation Management Last administered on 02/16/18at 04:57; Start 02/15/18 at 02:45; Stop 02/16/18 at 11:22; Status DC Nitroglycerin (Nitroglycerin 2% Oint) 1 inch ONCE ONCE TOPICAL Last administered on 02/15/18at 03:04; Start 02/15/18 at 02:45; Stop 02/15/18 at 02:46 ; Status DC Labetalol HCl (Trandate Inj) 20 mg ONCE ONCE IV PUSH ; Start 02/15/18 at 02:45 ; Stop 02/15/18 at 02:46; Status DC Sodium Chloride 1,000 ml @ 42 mls/hr [id number] IV Last administered on at 20:54; Start 02/15/18 at 02:46; Stop 02/18/18 at 08:21; Status DC Sodium Chloride (NS Flush) 2 ml UNSCH PRN IV FLUSH FLUSH AFTER USING IV ACCESS ; Start 02/15/18 at 03:00 Sodium Chloride (NS Flush) 2 ml BID IV FLUSH Last administered on 02/17/18at 20: 54; Start 02/15/18 at 09:00 Metoclopramide HCl (Reglan Inj) 5 mg Q6H PRN IV PUSH NAUSEA OR VOMITING; Start 02/15/18 at 03:00 Acetaminophen (Tylenol) 650 mg Q6H PRN PO FEVER/PAIN SCALE 1 TO 2 Last administered on 02/18/18at 09:46; Start 02/15/18 at 03:00 Acetaminophen/ Hydrocodone Bitart (Lagrange 5-325 Mg) 1 tab Q4H PRN PO PAIN SCALE 3 TO 5; Start 02/15/18 at 03:00 Morphine Sulfate (Morphine Inj) 2 mg Q3H PRN IV PUSH Pain 6-10; Start 02/15/18 at 03:00 Senna/Docusate Sodium (Nancy-Colace) 1 tab BID PO Last administered on at 08:46; Start 02/15/18 at 09:00 Magnesium Hydroxide (Milk Of Magnesia Liq) 30 ml Q12H PRN PO Mild constipation ; Start 02/15/18 at 03:00 Sennosides (Senokot) 17.2 mg Q12H PRN PO Moderate constipation; Start 02/15/18 at 03:00 Bisacodyl (Dulcolax Supp) 10 mg DAILY PRN RECTAL SEVERE CONSITIPATION/ IF NPO ; Start 02/15/18 at 03:00 Lactulose (Lactulose Liq) 30 ml DAILY PRN PO SEVERE CONSITIPATION/ IF PO; Start 02/15/18 at 03:00 Aspirin (Ecotrin Ec) 81 mg DAILY PO Last administered on 02/18/18 08:46; Start 02/15/18 at 09:00 Atorvastatin Calcium (Lipitor) 40 mg DAILY PO Last administered on 02/18/18at 08 :46; Start 02/15/18 at 09:00 Nitroglycerin (Nitroglycerin 2% Oint) 0.5 inch Q6HR PRN TOPICAL CHEST PAIN; Start 02/15/18 at 03:00 Metoprolol Tartrate (Lopressor) 25 mg Q12HR PO Last administered on 02/18/18at 08:46; Start 02/15/18 at 09:00 Dextrose (D50w (Vial) Inj) 50 ml UNSCH PRN IV PUSH HYPOGLYCEMIA-SEE COMMENTS; Start 02/15/18 at 04:15 Glucagon (Glucagon Inj) 1 mg UNSCH PRN OTHER HYPOGLYCEMIA-SEE COMMENTS; Start 02/15/18 at 04:15 Insulin Aspart (NovoLOG SUPPLEMENTAL SCALE) 1 ACHS SLIDING SCALE SQ Last administered on 02/18/18at 08:45; Start 02/15/18 at 08:00 Pneumococcal Polyvalent Vaccine (Pneumovax-23 Inj) 25 mcg ONCE ONCE IM ; Start 02/16/18 at 10:00; Stop 02/16/18 at 10:01; Status DC Influenza Virus Vaccine (Flu (Quadrivalent) Vaccine Inj) 0.5 ml ONCE ONCE IM ; Start 02/16/18 at 10:00; Stop 02/16/18 at 10:01; Status DC Insulin Detemir (Levemir Inj) 5 units DAILY SQ Last administered on 02/18/18at 08:46; Start 02/17/18 at 10:30 Heparin Sodium/ Sodium Chloride 1,500 ml @ As Directed STK-MED ONCE .ROUTE ; Start 02/18/18 at 07:20; Stop 02/18/18 at 07:21; Status DC Midazolam HCl (Versed Inj) 2 mg STK-MED ONCE .ROUTE ; Start 02/18/18 at 07:20; Stop 02/18/18 at 07:21; Status DC Fentanyl Citrate (fentaNYL INJ) 100 mcg STK-MED ONCE .ROUTE Last administered on 02/18/18at 07:33; Start 02/18/18 at 07:20; Stop 02/18/18 at 07:21; Status DC Heparin Sodium (Porcine) (Heparin Inj) 10,000 units STK-MED ONCE .ROUTE ; Start 02/18/18 at 07:21; Stop 02/18/18 at 07:22; Status DC Nitroglycerin 5 ml @ As Directed STK-MED ONCE .ROUTE ; Start 02/18/18 at 07:22; Stop 02/18/18 at 07:23; Status DC Midazolam HCl (Versed Inj) 2 mg STK-MED ONCE .ROUTE ; Start 02/18/18 at 07:35; Stop 02/18/18 at 07:36; Status DC Bivalirudin (Angiomax Inj) 250 mg STK-MED ONCE .ROUTE Last administered on 02/18at 07:51; Start 02/18/18 at 07:49; Stop 02/18/18 at 07:50; Status DC Clopidogrel Bisulfate (Plavix) 600 mg STK-MED ONCE .ROUTE Last administered on 02/18/18at 07:59; Start 02/18/18 at 07:58; Stop 02/18/18 at 07:59; Status DC Sodium Chloride 1,000 ml @ 100 mls/hr Q10H IV Last administered on 02/18/18at 08:05; Start 02/18/18 at 08:02; Stop 02/18/18 at 20:01 Clopidogrel Bisulfate (Plavix) 600 mg NOW ONCE PO ; Start 02/18/18 at 08:15; Stop 02/18/18 at 08:23; Status DC Clopidogrel Bisulfate (Plavix) 75 mg DAILY PO ; Start 02/19/18 at 09:00 Bacitracin (Bacitracin Oint Packet) 0.9 gm ONCE ONCE TOP ; Start 02/18/18 at 08 :30; Stop 02/18/18 at 08:31; Status DC Lidocaine HCl (Xylocaine 2% Jelly) 1 applic UNSCH X1 PRN TOP CATHETER INSERTION ; Start 02/18/18 at 08:15; Stop 02/19/18 at 08:14 Miscellaneous Information 1 ONCE ONCE XX ; Start 02/18/18 at 08:15; Stop at 08:23; Status DC Bivalirudin 250 mg/Sodium Chloride 50 ml @ 0 mls/hr Q0M IV ; Start 02/18/18 at 08:02; Stop 02/18/18 at 12:01 Isosorbide Mononitrate (Imdur) 60 mg DAILY@07 PO Last administered on at 08:47; Start 02/18/18 at 09:00 A/P Problem List: (1) NSTEMI (non-ST elevated myocardial infarction) ICD Code: I21.4 - Non-ST elevation (NSTEMI) myocardial infarction (2) HTN (hypertension) ICD Code: I10 - Essential (primary) hypertension (3) DM (diabetes mellitus) ICD Code: E11.9 - Type 2 diabetes mellitus without complications Assessment and Plan 67 years old male NSTEMI: HTN: overall improved- continue BB will monitor and adjust the regimen as needed. - continue Heparin drip, aspirin, BB and statin- cardiology ff- - plan for cardiac cath in am - ECho EF 55%. consider HANNAH for additional BP control if needed DM: Sliding scale w/ Accu-Cheks. A1C 8.0 -as OP on lantus 5 units q am + metformin 1 gm bid - will start levemer 5 units aq am- continue sliding scale - will not start metformin- for cath tomorrow - states good hypoglycemic awareness - diabetes education and diettiian consult DVT Prophylaxis: Heparin gtt Lion Abbott DO February 18, 2018 11:20
[2018-02-18] MEDS ORDERED: LEVEMIR SQ (11:24)
[2018-02-18] MEDS ORDERED: ISOS60TA PO (11:24)
[2018-02-18] MEDS ORDERED: METO25TA3 PO (11:24)
[2018-02-18] MEDS ORDERED: PLAV75TA29 PO (11:24)
[2018-02-18] MEDS ORDERED: ATOR40TA16 PO (11:24)
[2018-02-18] MEDS ORDERED: ECASA81 PO (11:24)
--- NOTE | 2018-02-18 11:27 | HHI.DS ---
Discharge Summary Admission Date February 15, 2018 at 03:13 Discharge Date: February 18, 2018 Admitting Diagnosis NON STEMI (1) NSTEMI (non-ST elevated myocardial infarction) ICD Code: I21.4 - Non-ST elevation (NSTEMI) myocardial infarction Diagnosis: Principal (2) HTN (hypertension) ICD Code: I10 - Essential (primary) hypertension Diagnosis: Principal (3) DM (diabetes mellitus) ICD Code: E11.9 - Type 2 diabetes mellitus without complications Diagnosis: Principal Procedures Minor,Taj Donis MD DATE: 02/18/2018 INDICATION: Non-ST elevation myocardial infarction. PROCEDURE PERFORMED: 1. Fluoroscopy with interpretation. 2. Coronary angiography. 3. Percutaneous coronary intervention with bare-metal stent to the proximal left anterior descending coronary artery. METHOD: Risks, benefits and alternatives were discussed with the patient. The patient understood and consented to the procedure. DESCRIPTION OF PROCEDURE: The patient was brought into the catheterization lab and placed on the catheterization table. The right wrist was prepped and draped in a sterile fashion. The right wrist was anesthetized with 2% lidocaine. The right radial artery was cannulated and a 6-[place]izen [place] 7 cm sheath was placed without difficulty. 200 mcg of intraarterial nitroglycerin, in additional to 3000 units of intravenous heparin was administered. CORONARY ANGIOGRAPHY: 1. Left main coronary artery is angiographically normal. 2. Left anterior descending coronary has several stents present throughout the entire mid segment. Just proximal to the stent, there is an 80% discrete stenosis. Its difficult to visualize due to small overlap of the septal perforators. The distal left anterior descending coronary has mild to moderate diffuse disease, in addition to small diagonal branches. 3. Left circumflex also was a very small caliber sized vessel with a distal 80% stenosis in the obtuse marginal branch. 4. Right coronary is a very small caliber size 100% subtotally occluded in the mid segment and collateralized left to right. It is 1.5 mm sized vessel. PERCUTANEOUS INTERVENTION: The right coronary artery is too small for intervention. In addition, the obtuse marginal branch is rather distal and small caliber size. Left anterior descending coronary artery proximal vessels feeding quite a bit of distribution including the distal right coronary via septal perforators. Angiomax was administered throughout the entire procedure to maintain appropriate anticoagulation. A 6-[place] XBLAD 4.0 guide catheter was engaged in the left main coronary artery. A 0.014 inch, 180 cm [employer] Run[employer] wire was navigated down the distal left anterior descending coronary artery branch. A 4.0 x 12 mm RX bare-metal Integrity stent was then advanced and deployed in the proximal left anterior descending coronary artery. Repeat angiography showed no residual stenosis, CARLOS 3 flow. We elected to proceed with bare metal stenting given that the patient does receive periodic back injections and will need discontinuation of Plavix periodically for those. The guide catheter removed, sheath removed and HemoBand applied. CONCLUSIONS: 1. Severe 3-vessel coronary artery disease. 2. Successful percutaneous coronary intervention with bare-metal stent to the proximal left anterior descending coronary artery. PLAN: We will monitor the patient closely for any postprocedure complications. Again, we deployed a bare-metal stent due to frequent back injections and need for discontinuation of Plavix. We will start long-acting nitrate for small vessel disease. I would recommend medical management of the right coronary and obtuse marginal branch given the small caliber size. If he does well since we were able to do from a radial approach, he can anticipate discharge potentially later today. He will go home on aspirin, Plavix, beta sadia, long-acting nitrate and statin. Brief History - From Admission This is a 67-year-old male with a PMH of HTN, Hyperlipidemia and DM was brought to the ER by EMS secondary to complaints of chest pain. Pt states he's had intermittent chest pain for several weeks. Follows w/ Care Nurse Rn in [place] and had recent Cath w/ plans for stent placement on February 27. [facility] [place] [facility] today and had chest pain when he got out of the car. Pain became constant, severe, 10/10, substernal, non-radiating. Took 6 NTG total with no improvement. Given ASA by EMS. Denies SOB. On arrival, BP 188/86, HR 98, O2 sat 98% on RA, Afebrile. CBC unremarkable. Chemistry unremarkable except for BS 325. Troponin 0.12. INR 1.0. CXR with no acute findings. S/p NTG in addition to Morphine, currently pain improved. CBC/BMP: 02/18/18 0508 02/16/18 0526 Significant Findings Laboratory Tests Test 02/15/18 14:40 02/16/18 05:26 02/18/18 05:08 Activated Partial Thromboplast Time 49.9 SEC (24.3-30.1) 39.9 SEC (24.3-30.1) White Blood Count 11.5 TH/MM3 (4.0-11.0) Red Blood Count 4.22 MIL/MM3 (4.50-5.90) 4.42 MIL/MM3 (4.50-5.90) Hemoglobin 12.7 GM/DL (13.0-17.0) Hematocrit 37.6 % (39.0-51.0) Mean Platelet Volume 11.3 FL (7.0-11.0) 11.5 FL (7.0-11.0) Random Glucose 197 MG/DL (74-106) Troponin I 4.42 NG/ML (0.02-0.05) Imaging Last Impressions Chest X-Ray 02/15/18 0105 Signed Impressions: CONCLUSION: No evidence of acute cardiopulmonary disease. PE at Discharge GENERAL: Awake alert and oriented 3 talkative and cooperative wants to go home SKIN: Warm and dry. HEAD: Atraumatic. Normocephalic. EYES: Pupils equal and round. No scleral icterus. No injection or drainage. ENT: No nasal bleeding or discharge. Mucous membranes pink and moist. NECK: Trachea midline. No JVD. Supple CARDIOVASCULAR: Regular rate and rhythm. S1-S2 no S3 or S4 RESPIRATORY: No accessory muscle use. Clear to auscultation. Breath sounds equal bilaterally. GASTROINTESTINAL: Abdomen soft, non-tender, nondistended. Hepatic and splenic margins not palpable. MUSCULOSKELETAL: Extremities without clubbing, cyanosis, or edema. No obvious deformities. NEUROLOGICAL: Awake and alert. No obvious cranial nerve deficits. Motor grossly within normal limits. Five out of 5 muscle strength in the arms and legs. Normal speech. PSYCHIATRIC: Appropriate mood and affect; insight and judgment normal. Hospital Course This is a 67-year-old male with a PMH of HTN, Hyperlipidemia and DM was brought to the ER by EMS secondary to complaints of chest pain. Pt states he's had intermittent chest pain for several weeks. Follows w/ Care Nurse Rn in [place] and had recent Cath w/ plans for stent placement on February 27. States went to the [employer] [facility] today and had chest pain when he got out of the car. Pain became constant, severe, 10/10, substernal, non-radiating. Took 6 NTG total with no improvement. Given ASA by EMS. Denies SOB. On arrival, BP 188/86, HR 98, O2 sat 98% on RA, Afebrile. CBC unremarkable. Chemistry unremarkable except for BS 325. Troponin 0.12. INR 1.0. CXR with no acute findings. S/p NTG in addition to Morphine, currently pain improved. Patient had cardiac catheterization today and had a bare-metal stent placed to the LAD Wants to go home later today Has been cleared by cardiology Can be discharged home later today to follow-up with his primary care physician and cardiology Pt Condition on Discharge: Good Discharge Disposition: Discharge Home Discharge Time: <= 30 minutes Discharge Instructions DIET: Follow Instructions for: Heart Healthy Diet, Diabetic Diet Speech Therapy-Diet Recommends: Regular Activities you can perform: Shower Only-No Bath Follow up Referrals: Cardiology, Interventional - 2 Weeks with Minor,Taj Ibarra MD PCP Follow-up - 3-5 Days New Medications: Aspirin DR (Aspirin DR) 81 Mg Tabdr 81 MG PO DAILY for Blood Clot Prevention, #30 TAB Atorvastatin (Atorvastatin) 40 Mg Tab 40 MG PO DAILY for Cholesterol Management, #30 TAB Clopidogrel (Plavix) 75 Mg Tab 75 MG PO DAILY for Blood Clot Prevention, #30 TAB Insulin Detemir Inj (Levemir Inj) 1,000 unit/ 10 ML Vial 5 UNITS SQ DAILY for Blood Sugar Management, #1 VIAL Do not mix with any other Insulin. Isosorbide Mononitrate ER (Isosorbide Mononitrate ER) 60 Mg Tab 60 MG PO DAILY@07 for Chest Pain, #30 TAB Metoprolol Tartrate (Metoprolol Tartrate) 25 Mg Tab 25 MG PO Q12HR for Blood Pressure Management, #60 TAB Lion Abbott DO February 18, 2018 11:27
[2018-02-18] MEDS ORDERED: IOHEXOL 350 MG/ML 100 ML BTL (for Cath Lab) OTHER ONE (13:46)
[2018-02-19] MEDS ORDERED: CLOPIDOGREL 75 MG TAB PO SCH (09:00)
--- NOTE | 2018-02-19 14:34 | EKG ---
Date Performed: 02/18/2018 Time Performed: 08:42:08 PTAGE: 68 years EKG: Sinus rhythm with bigeminal PVCs Possible left atrial abnormality Inferior infarct - age undetermined Lateral ST- T changes are nonspecific Abnormal ECG PREVIOUS TRACING : 02/15/2018 17.29 DOCTOR: Taj Cole Interpretating Date/Time 02/19/2018 14:32:03
== END 2018-02-18 18:43 | disposition home or self-care (01) | DRG 249 ==
LOC: NEPE 00:53 → NEDA 03:13 → HCVI 03:55 → HCIS 15:30
PROVIDERS: ADMIT Hospitalist; ATTEND Hospitalist
PROC: B2111ZZ Fluoroscopy of Multiple Coronary Arteries using Low Osmolar Contrast (ICD-10-PCS; 2018-02-18)
PROC: 02703DZ Dilation of Coronary Artery, One Artery with Intraluminal Device, Percutaneous Approach (ICD-10-PCS; principal; 2018-02-18 07:30)
DX: I21.4 Non-ST elevation (NSTEMI) myocardial infarction (principal); E11.51 Type 2 diabetes mellitus with diabetic peripheral angiopathy without gangrene; E11.649 Type 2 diabetes mellitus with hypoglycemia without coma; I25.10 Atherosclerotic heart disease of native coronary artery without angina pectoris; I10 Essential (primary) hypertension; E78.5 Hyperlipidemia, unspecified; I49.3 Ventricular premature depolarization; R00.8 Other abnormalities of heart beat; I25.2 Old myocardial infarction; Z79.4 Long term (current) use of insulin; Z95.5 Presence of coronary angioplasty implant and graft
CPT/HCPCS: 71045; 80053; 80061; 82550; 82552; 82948; 83036; 83735; 84484; 85025; 85027; 85610; 85730; 92928; 93005; 93306; 93454; 96374; 96375; 99152; 99153; C1769; C1876; C1887; C1893; J0583; J1644; J1815; J2250; J2270; J3010; J7030; Q9967